=== PATIENT | female | born 1945 | race Caucasian/White ===

== ENCOUNTER 2016-08-11 09:27 | Inpatient (IN) | payer OTHER ==
[~2016-08-11] VITALS: Ht 152.4 cm; Wt 62.4 kg
[2016-08-11] MEDS ORDERED: NITROGLYCERIN 0.4 MG SL PER TAB CHARGE SL STA (09:44)
[2016-08-11] MEDS ORDERED: ASPIRIN 324 MG CHEW PO STA (09:44)
[2016-08-11] MEDS ORDERED: NITROGLYCERIN 0.4 MG SL PER TAB CHARGE SL PRN ×2 (09:45→11:30)
--- NOTE | 2016-08-11 09:53 | EMERGENCY ROOM VISIT NOTE ---
History Report prepared by Oziel: Yuliet Arellano Under the Supervision of: Dr. Balta Swanson M.D. First contact with patient: 09:36 Chief Complaint: CARDIAC ASSESSMENT Stated Complaint: CHEST AND LEFT ARM PAIN Nursing Triage Summary: Triage note: pt reports left sided chest pain "for the past week only in the mornings but today it lasted longer." History of Present Illness The patient is a 71 year old female who presents to the Emergency Room with complaints of intermittent left sided chest pain that began one week ago. She currently rates her discomfort as a 3/10 in severity and she describes her pain as a heaviness. The patient states that over the last week, each morning she has been experiencing left chest pain that radiates into her left arm. She states that her symptoms have been worsening today. The patient states that her symptoms are worsened with exertion. She additionally associates shortness of breath, nausea, and heart palpitations. The patient states that she is typically active and does not normally become short of breath with walking short distances. She denies any fever, chills, loss of consciousness, vomiting , abdominal pain, extremity weakness, rash, or diarrhea. The patient notes that she recently battled a bad cold. She denies any personal history of hypertension, diabetes, heart disease, or high cholesterol. The patient states that she took Ibuprofen for her discomfort without relief. Source of History: patient Onset: one week ago Position: chest (left) Symptom Intensity: 3/10 Quality: other (heaviness) Timing: intermittent Modifying Factors (Worsening): exertion Associated Symptoms: + SOB, + nausea, No LOC, No abdominal pain, No chills, No diarrhea, No fevers, No rash, No vomiting, No weakness Note: Associated Symptoms: Heart palpitations. Review of Systems See HPI for pertinent positives & negatives. A total of 10 systems reviewed and were otherwise negative. Past Medical & Surgical Surgical Problems: (1) H/O dilation and curettage (2) H/O lumpectomy Family History FH: CAD (coronary artery disease) FATHER ( in 70s from [place]) MOTHER ( from [place] in her 70s) FHx: heart disease Hypertension Stroke FATHER MOTHER Social History Smoking Status: Never Smoker Smokeless Tobacco Use: No Alcohol Use: occasionally Marital Status: Housing Status: lives with significant other Occupation Status: retired Current/Historical Medications Scheduled PRN Ibuprofen (Advil), 200-600 MG PO Q4H PRN for Pain Allergies Coded Allergies: No Known Allergies (Unverified , 08/11/16) Physical Exam Vital Signs Date Time Temp Pulse Resp B/P Pulse Ox O2 Delivery O2 Flow Rate FiO2 08/11/16 14:23 36.7 89 18 149/92 95 Room Air 08/11/16 13:47 92 18 124/59 08/11/16 10:30 75 18 124/77 92 Room Air 08/11/16 10:25 84 18 141/85 96 Room Air 08/11/16 10:20 74 18 124/72 94 Room Air 08/11/16 10:15 73 18 114/71 95 Room Air 08/11/16 10:09 60 18 94/56 08/11/16 10:07 61 20 60/43 96 Room Air 08/11/16 10:06 58 08/11/16 10:05 50 08/11/16 10:00 84 18 158/84 08/11/16 09:52 100 08/11/16 09:32 36.5 89 18 190/107 97 Room Air Physical Exam GENERAL: Patient is anxious appearing, mild distress. HEENT: No acute trauma, normocephalic atraumatic, mucous membranes moist, no nasal congestion, no scleral icterus. NECK: No stridor, no adenopathy, no meningismus, trachea is midline. LUNGS: No dyspnea. Clear to auscultation and equal bilaterally. No wheeze, no rhonchi. HEART: Regular rate and rhythm. No murmurs, rubs, gallops appreciated. ABDOMEN: Soft, nontender, bowel sounds positive, no masses appreciated, no peritonitis. BACK: No midline tenderness, no CVA tenderness EXTREMITIES: Normal motion all extremities, no cyanosis, no edema. NEUROLOGIC: Alert and oriented, no acute motor or sensory deficits, no focal weakness, cranial nerves grossly intact. SKIN: No rash, no jaundice, no diaphoresis. Medical Decision & Procedures ER Provider Diagnostic Interpretation: X ray results are stated below per my interpretation and the radiologist's interpretation. CHEST ONE VIEW PORTABLE HISTORY: Atypical Chest Pain COMPARISON: None. FINDINGS: The lungs are clear. Cardiac silhouette is normal in size. No pleural effusions. No pneumothorax. IMPRESSION: No acute process. Electronically signed by: Zay Newell M.D. 08/11/2016 10:25 AM Dictated Date/Time: 08/11/2016 10:24 AM Laboratory Results 08/11/16 09:56 Red Blood Count 4.79, Mean Corpuscular Volume 88.7, Mean Corpuscular Hemoglobin 31.9, Mean Corpuscular Hemoglobin Concent 36.0, Mean Platelet Volume 12.0, Neutrophils (%) (Auto) 50.4, Lymphocytes (%) (Auto) 38.1, Monocytes (%) (Auto) 9.0, Eosinophils (%) (Auto) 1.9, Basophils (%) (Auto) 0.3, Neutrophils # (Auto) 3.52, Lymphocytes # (Auto) 2.66, Monocytes # (Auto) 0.63, Eosinophils # (Auto) 0.13, Basophils # (Auto) 0.02 08/11/16 09:56 Test 08/11/16 09:56 White Blood Count 6.98 K/uL (4.8-10.8) Red Blood Count 4.79 M/uL (4.2-5.4) Hemoglobin 15.3 g/dL (12.0-16.0) Hematocrit 42.5 % (37-47) Mean Corpuscular Volume 88.7 fL (80-100) Mean Corpuscular Hemoglobin 31.9 pg (25-34) Mean Corpuscular Hemoglobin Concent 36.0 g/dl (32-36) Platelet Count 232 K/uL (130-400) Mean Platelet Volume 12.0 fL (7.4-10.4) Neutrophils (%) (Auto) 50.4 % Lymphocytes (%) (Auto) 38.1 % Monocytes (%) (Auto) 9.0 % Eosinophils (%) (Auto) 1.9 % Basophils (%) (Auto) 0.3 % Neutrophils # (Auto) 3.52 K/uL (1.4-6.5) Lymphocytes # (Auto) 2.66 K/uL (1.2-3.4) Monocytes # (Auto) 0.63 K/uL (0.11-0.59) Eosinophils # (Auto) 0.13 K/uL (0-0.5) Basophils # (Auto) 0.02 K/uL (0-0.2) RDW Standard Deviation 39.4 fL (36.4-46.3) RDW Coefficient of Variation 12.4 % (11.5-14.5) Immature Granulocyte % (Auto) 0.3 % Immature Granulocyte # (Auto) 0.02 K/uL (0.00-0.02) Prothrombin Time 10.5 SECONDS (9.0-12.0) Prothromb Time International Ratio 1.0 (0.9-1.1) Activated Partial Thromboplast Time 26.2 SECONDS (21.0-31.0) Partial Thromboplastin Ratio 1.0 Anion Gap 11.0 mmol/L (3-11) Est Creatinine Clear Calc Drug Dose 46.0 ml/min Estimated GFR () 72.6 Estimated GFR (Non- 62.6 BUN/Creatinine Ratio 14.1 (10-20) Calcium Level 9.2 mg/dl (8.5-10.1) Total Creatine Kinase 62 U/L (26-192) Creatine Kinase MB 1.2 ng/ml (0.5-3.6) Creatine Kinase MB Ratio 1.9 (0-3.0) Troponin I 0.068 ng/ml (0-0.045) Laboratory results as reviewed by me. Medications Administered Medications (Trade) Dose Ordered Sig/Ana María Route Start Time Stop Time Status Last Admin Dose Admin Aspirin (Aspirin Chew) 324 mg NOW STAT PO 08/11/16 09:44 08/11/16 09:45 DC 08/11/16 09:53 324 MG Nitroglycerin 0.4 mg 0.4 mg NOW STAT SL 08/11/16 09:44 08/11/16 09:45 DC 08/11/16 09:44 0.4 MG Sodium Chloride (Nss 1000ml) 1,000 ml @ 999 mls/hr Q1H1M STAT IV 08/11/16 10:06 08/11/16 11:06 DC 08/11/16 10:06 999 MLS/HR Heparin Sodium/ Dextrose (Heparin 25,000 Unit/500ml D5W) 25,000 unit STK-MED ONCE .ROUTE 08/11/16 11:02 08/11/16 11:04 DC 08/11/16 11:10 25,000 UNIT Heparin Sodium (Porcine) (Heparin Sq 5000 Unit/0.5ml) 5,000 unit STK-MED ONCE .ROUTE 08/11/16 11:02 08/11/16 11:04 DC 08/11/16 11:09 4,000 UNIT ECG Indication: chest pain Rate (beats per minute): 79 Rhythm: normal sinus Findings: no acute ischemic change, no ectopy ED Course 0937: The patient was evaluated in room B7. A complete history and physical exam was performed. 0944: Ordered Nitroglycerin 0.4 mg SL, Aspirin 324 mg PO. 1006: Ordered Sodium chloride 1000 ml @ 999 mls/hr IV. I reevaluated the patient and she is hypotensive, bradycardic, and mildly nauseous, but sates that she no further chest pain and feels much better. 1046: I discussed the patient's case with Dov Chambers. She will evaluate the patient for further treatment. 1051: Ordered Heparin Sodium/Dextrose 1 ea NA. 1052: I reevaluated the patient and she is doing well. I discussed all the exam findings with her and I discussed the treatment plan. I discussed the contraindications and benefits about starting Heparin with the patient and she denies any contraindications. She agrees to starting Heparin. She will be evaluated for further treatment. 1102: Ordered Heparin Sodium (Porcine) 5000 unit .route, Heparin Sodium/ Dextrose 51625 unit .route. Medical Decision Differential: Cardiac Ischemia (STEMI, NSTEMI, Unstable Angina, etc), Aortic Dissection, Arrhythmia, Pulmonary Embolism, Pneumonia, Pneumothorax, MSK, Infectious, Pericarditis/Myocarditis, Esophageal Rupture, Gastrointestinal, amongst other pathologies entertained. Very pleasant 71 yr old female with exertion increased CP to left arm over last week. Uncomfortable on walk just down el. EKG with lateral depressions though no stemi. She was given single SLNTG with complete resolution of CP though developed significant lightheadedness, nausea and hypotension with bradycardia. Given 1 L NSS bolus stat with vast improvement in symptoms and BP. She has had no further chest pain and vitals have stabilized. She has no evidence of dissection and symptoms are not consistent with PE. Trop is elevated and with her symptoms and initial EKG findings I feel this is NSTEMI. She has complete resolution of CP thus does not need to go emergently to CATH at this time. She was re-evaluated multiple times throughout stay. She understands risks of bleeding with heparin and has no active contraindications thus agrees to starting this. Stable both before and after. Will bring in to medicine service. Consults Time Called: 1045 Consulting Physician: Dov Chambers Returned Call: 1044 I discussed the patient's case with Dov Chambers. She will evaluate the patient for further treatment. Impression Primary Impression: NSTEMI (non-ST elevated myocardial infarction) Critical Care I have personally spent greater than 35 minutes of critical care time in the direct management of this patient. This was a life/limb threatening event. This includes time spent evaluating patient, direct bedside care, chart review, placing orders, interpretation of diagnostic studies, discussion with consultants, patient, and family members, as well as other required patient management activities. This 35 minutes is in excess of all separately billable procedures. Scribe Attestation The scribe's documentation has been prepared under my direction and personally reviewed by me in its entirety. I confirm that the note above accurately reflects all work, treatment, procedures, and medical decision making performed by me. Departure Information Dispostion Being Evaluated By Hospitalist Ulysses Desai M.D. (PCP)
[2016-08-11] MEDS ORDERED: SODIUM CHLORIDE 0.9% 1000ML 1,000 ML IV STA (10:06)
[2016-08-11 10:15] LABS: BASO % 0.3 %; BASO ABS # 0.02 K/uL (0-0.2); COMPLETE YES; EOS % 1.9 %; HEMATOCRIT 42.5 % (37-47); IG% 0.3 %; LYMPH % 38.1 %; LYMPH ABS # 2.66 K/uL (1.2-3.4); MEAN CELL VOLUME 88.7 fL (80-100); MEAN CORPUSCULAR HEMOGLOBIN 31.9 pg (25-34); NEUT % 50.4 %; PLATELET COUNT 232 K/uL (130-400); RED BLOOD COUNT 4.79 M/uL (4.2-5.4); WHITE BLOOD COUNT 6.98 K/uL (4.8-10.8)
--- NOTE | 2016-08-11 10:26 | DIAGNOSTIC IMAGING REPORT ---
CHEST ONE VIEW PORTABLE HISTORY: Atypical Chest Pain COMPARISON: None. FINDINGS: The lungs are clear. Cardiac silhouette is normal in size. No pleural effusions. No pneumothorax. IMPRESSION: No acute process. Electronically signed by: Zay Newell M.D. 08/11/2016 10:25 AM Dictated Date/Time: 08/11/2016 10:24 AM
[2016-08-11] MEDS ORDERED: IBUP-1050 PO (10:27)
[2016-08-11 10:32] LABS: BUN/CREATININE RATIO 14.1 (10-20); CALCIUM 9.2 mg/dl (8.5-10.1); CREATININE 0.92 mg/dl (0.60-1.20); POTASSIUM 4.1 mmol/L (3.5-5.1)
[2016-08-11 10:43] LABS: CKMB/CK RATIO 1.9 (0-3.0)
[2016-08-11] MEDS ORDERED: HEPARIN 25000 UNIT/500 ML D5W ONE (11:02)
[2016-08-11] MEDS ORDERED: HEPARIN SOD 5000 UNIT/0.5 ML CARP ONE (11:02)
[2016-08-11] MEDS ORDERED: ONDANSETRON INJ 2 MG/ML 2 ML VIAL IV PRN (11:15)
[2016-08-11] MEDS ORDERED: ACETAMINOPHEN 325 MG TAB PO PRN (11:15)
[2016-08-11 11:24] LABS: PROTHROMBIN TIME (PATIENT) 10.5 SECONDS (9.0-12.0)
[2016-08-11] MEDS ORDERED: HEPARIN 25,000 UNIT/500ML D5W 500 ML IV PRN (11:45)
--- NOTE | 2016-08-11 12:01 | History and Physical ---
History & Physical Date & Time of Service: Aug 11, 2016 at 11:32 Chief Complaint: Chest Pain Primary Care Physician: Ulysses Stone M.D. History of Present Illness 71 year old female who presents to the ER with chest pain. Patient reports her symptoms began about one week ago. She reports she would wake up in the morning and once getting out of bed she would get left sided chest pressure. She reports the pain as mild to moderate and that it would resolve on it's own after a few hours. She did not have any associated symptoms at that time. This morning she reports the pain as much more severe, rating it #9/10. She also had radiation of the pain into her left arm and had shortness of breath. She denies diaphoresis or nausea. No lightheadedness, dizziness, or syncopal events. She denies orthopnea and leg edema. She reports that aside from the chest pain over the past week, she otherwise has been feeling well. She denies abdominal pain, nausea, or vomiting. No fever or chills. She denies cough and sputum production. No urinary symptoms. In the ER, patient was given SL nitro and is currently pain free. After administration of nitro, patient developed hypotension that improved with IVF bolus. Troponin is found to be 0.068. She was started on heparin infusion. Past Medical/Surgical History Surgical Problems: (1) H/O dilation and curettage Status: Chronic (2) H/O lumpectomy Status: Chronic Family History FH: CAD (coronary artery disease) FATHER ( in 70s from [place]) MOTHER ( from [place] in her 70s) Stroke FATHER MOTHER Social History Smoking Status: Never Smoker Alcohol Use: occasionally Marital Status: Multi-Drug Resistant Organisms History of MDRO: No Allergies Coded Allergies: No Known Allergies (Unverified , 08/11/16) Home Medications Scheduled PRN Ibuprofen (Advil), 200-600 MG PO Q4H PRN for Pain Review of Systems 10 point review of systems was completed with the pertinent positives and negatives noted per the HPI Physical Exam Vital Signs Date Time Temp Pulse Resp B/P Pulse Ox O2 Delivery O2 Flow Rate FiO2 08/11/16 10:30 75 18 124/77 92 Room Air 08/11/16 10:25 84 18 141/85 96 Room Air 08/11/16 10:20 74 18 124/72 94 Room Air 08/11/16 10:15 73 18 114/71 95 Room Air 08/11/16 10:09 60 18 94/56 08/11/16 10:07 61 20 60/43 96 Room Air 08/11/16 10:06 58 08/11/16 10:05 50 08/11/16 10:00 84 18 158/84 08/11/16 09:52 100 08/11/16 09:32 36.5 89 18 190/107 97 Room Air General Appearance: no apparent distress Head: normocephalic Eyes: normal inspection ENT: hearing grossly normal Neck: supple, no JVD Respiratory/Chest: lungs clear, normal breath sounds, no respiratory distress Cardiovascular: regular rate, rhythm, no edema, normal peripheral pulses Abdomen/GI: normal bowel sounds, non tender, soft Extremities/Musculoskelatal: normal inspection, no calf tenderness Neurologic/Psych: no motor/sensory deficits, alert, normal mood/affect, oriented x 3 Skin: normal color, warm/dry Diagnostics Laboratory Results Results Past 24 Hours Test 08/11/16 09:56 Range/Units White Blood Count 6.98 4.8-10.8 K/uL Red Blood Count 4.79 4.2-5.4 M/uL Hemoglobin 15.3 12.0-16.0 g/dL Hematocrit 42.5 37-47 % Mean Corpuscular Volume 88.7 80-100 fL Mean Corpuscular Hemoglobin 31.9 25-34 pg Mean Corpuscular Hemoglobin Concent 36.0 32-36 g/dl Platelet Count 232 130-400 K/uL Mean Platelet Volume 12.0 7.4-10.4 fL Neutrophils (%) (Auto) 50.4 % Lymphocytes (%) (Auto) 38.1 % Monocytes (%) (Auto) 9.0 % Eosinophils (%) (Auto) 1.9 % Basophils (%) (Auto) 0.3 % Neutrophils # (Auto) 3.52 1.4-6.5 K/uL Lymphocytes # (Auto) 2.66 1.2-3.4 K/uL Monocytes # (Auto) 0.63 0.11-0.59 K/uL Eosinophils # (Auto) 0.13 0-0.5 K/uL Basophils # (Auto) 0.02 0-0.2 K/uL RDW Standard Deviation 39.4 36.4-46.3 fL RDW Coefficient of Variation 12.4 11.5-14.5 % Immature Granulocyte % (Auto) 0.3 % Immature Granulocyte # (Auto) 0.02 0.00-0.02 K/uL Prothrombin Time 10.5 9.0-12.0 SECONDS Prothromb Time International Ratio 1.0 0.9-1.1 Activated Partial Thromboplast Time 26.2 21.0-31.0 SECONDS Partial Thromboplastin Ratio 1.0 Sodium Level 141 136-145 mmol/L Potassium Level 4.1 3.5-5.1 mmol/L Chloride Level 108 98-107 mmol/L Carbon Dioxide Level 22 21-32 mmol/L Anion Gap 11.0 3-11 mmol/L Blood Urea Nitrogen 13 7-18 mg/dl Creatinine 0.92 0.60-1.20 mg/dl Est Creatinine Clear Calc Drug Dose 46.0 ml/min Estimated GFR () 72.6 Estimated GFR (Non- 62.6 BUN/Creatinine Ratio 14.1 10-20 Random Glucose 91 70-99 mg/dl Calcium Level 9.2 8.5-10.1 mg/dl Total Creatine Kinase 62 26-192 U/L Creatine Kinase MB 1.2 0.5-3.6 ng/ml Creatine Kinase MB Ratio 1.9 0-3.0 Troponin I 0.068 0-0.045 ng/ml Diagnostic Radiology CXR IMPRESSION: No acute process. Impression Assessment and Plan CHEST PAIN, ACS - admit to tele - patient presenting with chest pressure x 1 week, acutely worse this morning with radiation of pain into the left arm and shortness of breath - chest pain free after one SL nitro - EKG does not show any acute ST changes, initial troponin 0.068 - IV heparin started by ED, will continue - case discussed with Dr. Jackson, cardiology - resting echo - ASA DVT PROPHYLAXIS - on IV heparin DISPO - In my clinical judgment this beneficiary meets acute admission criteria, established by [facility], that includes being hospitalized through two midnights. agree with above h and p. 71f presents with chest pain. Patient says she is getting chest pain in the mornings for last few days but today morning pain was severe 9/10 in severity radiating to left arm and associated with nausea.Pain relived by nitro in er but her BP dropped after nitro and improved with fluids. Currently pain free and hemodynamically stable.Afebrile.No cough p/e Ge not in distress cvs s1 and s2 heard no murmurs Rs cta b/l no added sounds Abd benign [employer] non focal ext no edema a/p Chest pain NSTEMI? mild elevation of troponin ekg unremarkable started on iv heparin aspirin morphine and nitro prn follow serial ce cardiology on board CTA chest negative for PE. VTE Prophylaxis VTE Risk Assessment Done? Y/N: Yes Risk Level: Moderate
--- NOTE | 2016-08-11 14:07 | CARDIOLOGY CONSULTATION ---
DATE OF CONSULTATION: 08/11/2016 REFERRING PHYSICIAN: Dov de jesus. REASON FOR CONSULTATION: Chest pain. HISTORY OF PRESENT ILLNESS: This is a 71-year-old female who is in a very good state of health. She has minimal risk factors for heart disease and is actually on no current outpatient medications. Over the past several weeks she has been experiencing atypical chest discomfort. She states that she will have left-sided chest pain when she gets up in the morning and then after a few hours it goes away on its own. She is able to do her normal activities. It is not associated with shortness of breath or diaphoresis. This morning, she awoke and had severe discomfort, more so than usual and decided to present to the Emergency Department. The patient was given a sublingual nitroglycerin in the Emergency Department and became hypotensive requiring IV fluids. Her first set of cardiac troponins are borderline elevated at 0.068. Her EKG is normal. She is currently pain free and has no complaints. ALLERGIES: No known medical allergies. MEDICATIONS: P.r.n. ibuprofen. PAST MEDICAL HISTORY: She has no history of hypertension, diabetes, hypercholesterolemia, kidney disease or strokes. She had a D\T\C and lumpectomy. No other significant past medical history. SOCIAL HISTORY: She is a lifelong nonsmoker. She lives with her . FAMILY MEDICAL HISTORY: Significant for her parents dying from myocardial infarction in their 70s. REVIEW OF SYSTEMS: A 10-point review of systems is negative except for the history of chief complaint. PHYSICAL EXAMINATION: GENERAL: She is alert and oriented in no acute distress. VITAL SIGNS: Blood pressure is 120/70, pulse is regular at 75. She is afebrile. HEENT: She is normocephalic. Pupils are equal and reactive to light. Extraocular muscles are intact bilaterally. NECK: The neck veins are flat. Carotids have good upstrokes bilaterally without bruits. Thyroid is nonpalpable. RESPIRATORY: Breath sounds equal bilaterally and clear to auscultation. CARDIOVASCULAR: Heart has a regular rhythm. Normal S1, S2. No S3, S4. No cardiac rubs or murmurs. GASTROINTESTINAL: Abdomen is soft, nontender without organomegaly. EXTREMITIES: Free of edema, digit clubbing, or cyanosis. NEUROLOGIC: Grossly intact. SKIN: Warm to touch. LYMPH NODES: Negative to palpation. LABORATORY DATA: As per the history of chief complaint. IMPRESSION: 1. Chest pain. 2. Borderline elevation of cardiac markers. 3. Normal EKG. 4. Minimal risk factors for coronary artery disease. RECOMMENDATIONS: I think the patient should be admitted and have additional cardiac markers drawn. Her initial troponins could be elevated due to her being given sublingual nitroglycerin in the ER with subsequent hypotension. We will see what the next set shows.
[2016-08-11 14:23] VITALS: BP 149/92; PULSE 89; TEMP 36.7; O2SAT 95; Ht 152.4 cm; Wt 62.4 kg
[2016-08-11] MEDS ORDERED: OPTIRAY 320 IV PRN (17:15)
[2016-08-11 19:34] LABS: PARTIAL THROMBOPLASTIN RATIO 2.6
[2016-08-11 19:50] VITALS: BP 165/83; PULSE 90; TEMP 36.7; O2SAT 96
--- NOTE | 2016-08-11 20:49 | DIAGNOSTIC IMAGING REPORT ---
CHEST CTA for PULMONARY ARTERIES CT DOSE: 189.45 mGy.cm HISTORY: Chest pain dyspnea TECHNIQUE: Multiaxial CT images of the chest were performed following the intravenous administration of contrast to evaluate the pulmonary arteries. Maximal intensity projection images were also obtained. COMPARISON STUDY: None. FINDINGS: There is a normal caliber thoracic aorta with no evidence for dissection. There is no evidence for pulmonary embolus. No pleural effusions. No pneumothorax. The liver and spleen are unremarkable. No mediastinal or hilar lymphadenopathy. The central airways are patent. The lungs are clear. Scattered platelike atelectasis. Mild emphysematous change. IMPRESSION: No evidence for pulmonary embolus. Electronically signed by: Ramiro Pack M.D. 08/11/2016 8:48 PM Dictated Date/Time: 08/11/2016 8:45 PM
[2016-08-11] MEDS ORDERED: MoRPHine SULFATE 4 MG/ML 1 ML CARP\\VIAL IV PRN (21:15)
[2016-08-11] MEDS ORDERED: TRAMADOL HCL 50 MG TAB PO PRN (21:15)
[2016-08-12] VITALS (17 sets, daily range): BP systolic 107–161; BP diastolic 66–83; PULSE 74–103; TEMP 36.1–37; O2SAT 93–96
[2016-08-12 07:01] LABS: HEMATOCRIT 38.4 % (37-47); MEAN CELL VOLUME 88.1 fL (80-100); MEAN CORPUSCULAR HEMOGLOBIN 31.7 pg (25-34); MEAN CORPUSCULAR HGB CONC 35.9 g/dl (32-36); MEAN PLATELET VOLUME 11.9 fL (7.4-10.4); PLATELET COUNT 232 K/uL (130-400); RED BLOOD COUNT 4.36 M/uL (4.2-5.4); WHITE BLOOD COUNT 8.38 K/uL (4.8-10.8)
[2016-08-12 07:30] LABS: BUN/CREATININE RATIO 12.2 (10-20); CALCIUM 8.2 mg/dl (8.5-10.1); CREATININE 0.78 mg/dl (0.60-1.20); POTASSIUM 3.8 mmol/L (3.5-5.1)
[2016-08-12 07:33] LABS: CHOLESTEROL/HDL RATIO 3.1
--- NOTE | 2016-08-12 10:03 | Progress Note ---
Internal Med Progress Note Date of Service: Aug 12, 2016. Provider Documentation: SUBJECTIVE: Patient is seen and examined at bedside. Patient currently denies any chest pain , SOB, palpitations, dizziness. Reports having chest pain while getting CT scan yesterday. Offers no other complaints. Planned for cath today. OBJECTIVE: Vital Signs-as noted below Physical Exam: General Appearance:Moderately built and nourished, no apparent distress Head: normocephalic, Atraumatic Eyes: normal inspection, EOMI, PERRLA Neck: supple, Trachea midline Respiratory/Chest: Normal breath sounds, CTA, No accessory muscle use Cardiovascular: S1, S2, No murmur Abdomen/GI:Soft, Non tender, Bowel sounds present Extremities/Musculoskelatal:normal inspection, no edema Neurologic/Psych:AAOX3, grossly no focal neurological deficits Skin: normal color, warm Lab data as noted below. ASSESSMENT & PLAN: CHEST PAIN: R/O ACS Risk Factors: Heart disease in family Continue monitor in tele Patient presenting with chest pressure x 1 week, acutely worse this morning with radiation of pain into the left arm and shortness of breath Chest pain free after one SL nitro >>> Hypotensive requiring IV fluids CTA: Negative for PE Initial EKG: No ST changes Troponin: 0.068, 0.49, 0.59 trending up Continue IV heparin Appreciate cardiology help Planned for cath today ECHO: pending Continue aspirin IRRITABLE BOWEL SYNDROME: well controlled per patient currently not on meds No issues currently DVT PROPHYLAXIS On IV heparin DISPOSITION: Continue monitoring in Tele Vital Signs: Date Time Temp Pulse Resp B/P Pulse Ox O2 Delivery O2 Flow Rate FiO2 08/12/16 08:00 Room Air 08/12/16 07:48 36.8 76 20 127/75 95 Room Air 08/12/16 04:20 37.0 74 16 124/76 96 Room Air 08/12/16 04:00 Room Air 08/12/16 01:43 Room Air 08/12/16 00:17 36.8 75 20 124/82 96 Room Air 08/12/16 00:00 Room Air 08/11/16 20:00 Room Air 08/11/16 19:50 36.7 90 18 165/83 96 Room Air 08/11/16 14:23 36.7 89 18 149/92 95 Room Air 08/11/16 13:47 92 18 124/59 08/11/16 10:30 75 18 124/77 92 Room Air 08/11/16 10:25 84 18 141/85 96 Room Air 08/11/16 10:20 74 18 124/72 94 Room Air Lab Results: Results Past 24 Hours Test 08/11/16 15:45 08/11/16 19:00 08/11/16 21:40 08/12/16 06:35 Range/Units Creatine Kinase MB 2.6 0.5-3.6 ng/ml Creatine Kinase MB Ratio 0-3.0 Troponin I 0.499 0.592 0-0.045 ng/ml Activated Partial Thromboplast Time 66.8 78.3 21.0-31.0 SECONDS Partial Thromboplastin Ratio 2.6 3.0 White Blood Count 8.38 4.8-10.8 K/uL Red Blood Count 4.36 4.2-5.4 M/uL Hemoglobin 13.8 12.0-16.0 g/dL Hematocrit 38.4 37-47 % Mean Corpuscular Volume 88.1 80-100 fL Mean Corpuscular Hemoglobin 31.7 25-34 pg Mean Corpuscular Hemoglobin Concent 35.9 32-36 g/dl RDW Standard Deviation 40.1 36.4-46.3 fL RDW Coefficient of Variation 12.4 11.5-14.5 % Platelet Count 232 130-400 K/uL Mean Platelet Volume 11.9 7.4-10.4 fL Sodium Level 143 136-145 mmol/L Potassium Level 3.8 3.5-5.1 mmol/L Chloride Level 112 98-107 mmol/L Carbon Dioxide Level 21 21-32 mmol/L Anion Gap 10.0 3-11 mmol/L Blood Urea Nitrogen 10 7-18 mg/dl Creatinine 0.78 0.60-1.20 mg/dl Est Creatinine Clear Calc Drug Dose 53.9 ml/min Estimated GFR () 88.6 Estimated GFR (Non- 76.5 BUN/Creatinine Ratio 12.2 10-20 Random Glucose 101 70-99 mg/dl Calcium Level 8.2 8.5-10.1 mg/dl Triglycerides Level 109 0-150 mg/dl Cholesterol Level 217 0-200 mg/dl HDL Cholesterol 70 mg/dl LDL Cholesterol, Calculated 125 mg/dl VLDL Cholesterol, Calculated 22 mg/dl Cholesterol/HDL Ratio 3.1
--- NOTE | 2016-08-12 11:56 | ECHOCARDIOGRAM REPORT ---
*NOTICE TO RECEIVING LIBERTARIAN AGENCY This information is strictly Confidential and protected under [place] law. [place] law prohibits you from making any further disclosure of this information unless further disclosure is expressly permitted by the written consent of the person to whom it pertains or is authorized by law. A general authorization for the release of medical or other information is not sufficient for this purpose. Hospital accepts no responsibility if the information is made available to any other person, INCLUDING THE PATIENT. Interpretation Summary * Name: LOEN JOHNSON Study Date: 08/12/2016 10:24 AM BP: 124/76 mmHg * Patient Location: C.2T\S\S230\S\1 HR: 76 * : 1945 (M/d/yyyy) Gender: Female Height: 60 in * Age: 71 yrs Ethnicity: CA Weight: 135 lb * Ordering Physician: Anum Linda * Performed By: Dahiana Zuniga RDCS * * Reason For Study: Chest pain, NSTEMI * BSA: 1.6 m2 * -- Conclusions -- * The left ventricle is normal in size. * There is mild anterior wall hypokinesis. * Ejection Fraction = 55-60%. * The right ventricular systolic function is normal. * The left atrial size is normal. * Right atrial size is normal. * There is mild mitral regurgitation. Procedure Details * A complete two-dimensional transthoracic echocardiogram was performed (2D, M-mode, Doppler and color flow Doppler). Left Ventricle * The left ventricle is normal in size. * There is normal left ventricular wall thickness. * Ejection Fraction = 55-60%. * There is mild anterior wall hypokinesis. Right Ventricle * The right ventricle is normal size. * The right ventricular systolic function is normal. Atria * The left atrial size is normal. * Right atrial size is normal. * The interatrial septum is intact with no evidence for an atrial septal defect. Mitral Valve * The mitral valve anatomy is normal. * There is mild mitral regurgitation. Tricuspid Valve * The tricuspid valve anatomy is normal. * Significant tricuspid regurgitation is absent. Aortic Valve * The aortic valve is tricuspid. The leaflet thickness if normal. There is no aortic stenosis, and no significant insufficiency. * Aortic stenosis is absent. * There is no significant aortic regurgitation. Pulmonic Valve * The pulmonic valve is not well visualized. Great Vessels * The aortic root and proximal ascending aorta are normal sized. Pericardium/Pleural * There is no pericardial effusion. MMode 2D Measurements and Calculations IVSd 0.89 cm LVIDd 4.2 cm LVIDs 3.0 cm LVPWd 0.75 cm IVS/LVPW 1.2 FS 26.7 % EDV(Teich) 76.4 ml ESV(Teich) 36.2 ml EF(Teich) 52.6 % EDV(cubed) 71.5 ml ESV(cubed) 28.2 ml EF(cubed) 60.6 % LV mass(C)d 102.4 grams LV mass(C)dI 64.8 grams/m\S\2 CO(Teich) 3.0 l/min CI(Teich) 1.9 l/min/m\S\2 SV(Teich) 40.2 ml SI(Teich) 25.4 ml/m\S\2 CO(cubed) 3.3 l/min CI(cubed) 2.1 l/min/m\S\2 SV(cubed) 43.3 ml SI(cubed) 27.4 ml/m\S\2 Ao root diam 2.6 cm Ao root area 5.2 cm\S\2 ACS 1.7 cm LA dimension 3.1 cm asc Aorta Diam 2.6 cm LA/Ao 1.2 LVAd ap4 18.0 cm\S\2 LVLd ap4 6.2 cm EDV(MOD-sp4) 43.4 ml LVAs ap4 11.5 cm\S\2 LVLs ap4 5.6 cm ESV(MOD-sp4) 19.6 ml EF(MOD-sp4) 54.8 % LVAd ap2 11.7 cm\S\2 LVLd ap2 4.7 cm EDV(MOD-sp2) 24.0 ml LVAs ap2 7.4 cm\S\2 LVLs ap2 4.2 cm ESV(MOD-sp2) 10.9 ml EF(MOD-sp2) 54.6 % CO(MOD-sp4) 1.8 l/min CI(MOD-sp4) 1.1 l/min/m\S\2 SV(MOD-sp4) 23.8 ml SI(MOD-sp4) 15.1 ml/m\S\2 CO(MOD-sp2) 0.98 l/min CI(MOD-sp2) 0.62 l/min/m\S\2 SV(MOD-sp2) 13.1 ml SI(MOD-sp2) 8.3 ml/m\S\2 Doppler Measurements and Calculations MV E max georgina 98.5 cm/sec MV A max georgina 126.1 cm/sec MV E/A 0.78 MV dec time 0.21 sec Ao V2 max 124.9 cm/sec Ao max PG 6.2 mmHg Ao max PG (full) 1.9 mmHg LV V1 max PG 4.4 mmHg LV V1 max 104.3 cm/sec MR max georgina 500.7 cm/sec MR max PG 100.3 mmHg MR mean georgina 385.8 cm/sec MR mean PG 67.0 mmHg MR VTI 135.5 cm PA V2 max 104.2 cm/sec PA max PG 4.3 mmHg PA acc slope 811.8 cm/sec\S\2 PA acc time 0.10 sec PI max georgina 179.8 cm/sec PI max PG 12.9 mmHg PI dec slope 298.3 cm/sec\S\2 PI P1/2t 176.6 msec TR max georgina 236.7 cm/sec PA pr(Accel) 34.6 mmHg
[2016-08-12] MEDS ORDERED: NiCARDipine HCL INJ 2.5 MG/ML 10 ML AMP ONE (13:13)
[2016-08-12] MEDS ORDERED: NITROGLYCERIN/D5W 100MCG/ML 20ML SYR ONE (13:16)
[2016-08-12] MEDS ORDERED: MIDAZOLAM HCL 1 MG/ML 2ML VIAL ONE ×2 (13:17→14:14)
[2016-08-12] MEDS ORDERED: FENTANYL CITRATE INJ 50 MCG/1 ML 2 ML VIAL ONE (13:17)
[2016-08-12] MEDS ORDERED: HEPARIN SOD (PORCINE) 1000 UNIT/ML 10 ML VIAL ONE (13:18)
[2016-08-12] MEDS ORDERED: METHYLPREDNISOLONE 125 MG VIAL ONE (13:30)
[2016-08-12] MEDS ORDERED: DiphenhydrAMINE HCL 50 MG/ML VIAL ONE (13:31)
[2016-08-12] MEDS ORDERED: RANITIDINE HCL 25 MG/ML INJ ONE (13:31)
--- NOTE | 2016-08-12 13:55 | Cardiac Catheterization ---
Procedure Note Procedure Date Aug 12, 2016. Pre-Procedure Diagnosis Non STEMI AUC Score 9 Post-Procedure Diagnosis Severe CAD Procedure(s) Performed Coronary Angiography, Left Heart Cath Key Sander Dr. Jackson Party Host(s) None Estimated Blood Loss None Medication(s) Versed, Lidocaine 1% Summary of Findings Subtotal prox. LAD Hemodynamics Rest Ao: 132/92 Final Ao: 130/90 LV: 165/17 Recommendations PCI without planned CABG Specimens None Radiation Exposure (mGy) 157 Contrast (mls) 66 Procedural Complication(s) Patient had coughing during cath and received, solumedrol, benadryl and zantac. Cough resolved. Disposition PCU ACC Data Cardiac Status Clinical evaluation leading to the procedure CAD Presntation: Unstable angina, Non STEMI STEMI or Non-STEMI: Thrombolytics: No Anginal Classification: CCS III Heart Failure: No Cardiogenic Shock w/in 24Hrs: No Cardiac Arrest w/in 24Hrs: No Imaging studies past 6 months: Yes Stress studies past 6 months: No Standard Exercise Stress Test: No Stress Echocardiogram: No Stress Testing w/SPECT MPI: No Cardiac CTA: No Coronary Anatomy Dominant: Right Left Main (% Stenosis): Normal LAD (% Stenosis): Proximal (95) Circumflex (% Stenosis): Normal RCA (% Stenosis): Normal Diagnostic Status: Urgent Closure Device Percutaneous Entry Location: Radial Closure Device: Radial Band Recommendations: PCI without planned CABG
[2016-08-12] MEDS: CLOPIDOGREL BISULFATE 300 MG TAB PO ONE ×2 (14:43→14:49)
[2016-08-12] MEDS ORDERED: CLOPIDOGREL BISULFATE 75 MG TAB ONE ×2 (14:44→14:46)
[2016-08-12] MEDS ORDERED: ONDANSETRON INJ 2 MG/ML 2 ML VIAL IV PRN (15:00)
[2016-08-12] MEDS ORDERED: ACETAMINOPHEN 325 MG TAB PO PRN (15:00)
[2016-08-12] MEDS ORDERED: SODIUM CHLORIDE 0.9% 1000ML 1,000 ML IV SCH ×2 (15:00)
--- NOTE | 2016-08-12 15:06 | Procedure Note ---
Post-Mod Sedation Assessment General Date of Moderate Sedation Aug 12, 2016. Vital Signs: Vital Signs Past 12 Hours Date Time Temp Pulse Resp B/P Pulse Ox O2 Delivery O2 Flow Rate FiO2 08/12/16 14:45 84 14 102/70 95 Room Air 08/12/16 14:35 85 14 148/90 95 Room Air 08/12/16 12:00 Room Air 08/12/16 11:55 36.9 89 18 161/83 95 Room Air 08/12/16 08:00 Room Air 08/12/16 07:48 36.8 76 20 127/75 95 Room Air 08/12/16 04:20 37.0 74 16 124/76 96 Room Air 08/12/16 04:00 Room Air Review - Discharge Criteria Vital Signs Stable: Yes Alert/Oriented/Conversant: Yes Returned to Baseline Mental St: Yes Nausea Absent/Minimal: Yes Pain/Discomfort/Absent/Minimal: Yes Normal/Baseline Respirations: Yes Active Bleeding?: N/A Pt Received D/C Instructions: N/A Prescriptions Given: None Specific Proced. D/C Criteria Distal Pulses Present (Cardiac: Yes Groin site assessed-Card Cath: N/A Voided Prior To Discharge: N/A Discharged Patients Adult Escort/Transportation: Yes
[2016-08-12] MEDS: ASPIRIN 81 MG ECTAB PO SCH (15:40)
[2016-08-12] MEDS ORDERED: NURSING VERBAL MED ORDER ONE ×2 (15:45)
--- NOTE | 2016-08-12 17:25 | CARDIAC CATH REPORT ---
PROCEDURE: 1. Coronary angiography. 2. Left heart catheterization. HISTORY OF PRESENT ILLNESS: This is a 71-year-old female who presented with a non-STEMI. PROCEDURE SUMMARY: The patient was brought to the holding area of the skilled labor. After informed consent was obtained, the patient was taken to the cardiac catheterization lab where access was obtained using retrograde Seldinger technique from the right transfemoral approach. A Barbeau maneuver was performed before proceeding and showed good collateral flow within the hand. Preformed 4-Tamazight diagnostic catheters were utilized for the coronary angiograms. During procedure, the patient developed coughing and was given prophylaxis for dye allergy with Solu-Medrol, ranitidine and Benadryl. The coughing improved after being given these medications. The patient then went on to have coronary intervention on the LAD and then was admitted in stable condition. CORONARY ANGIOGRAPHY: Selective injections of the left coronary artery revealed the left main trunk to be patent. The LAD has a long segment subtotal stenosis in the proximal segment. The left circumflex artery consists principally of several, 3 in total, marginal branches. Left circumflex system is smooth in appearance, widely patent, and within normal limits. Selective injections of the right coronary artery reveal it to be dominant. The right coronary artery is smooth in appearance, widely patent, and within normal limits. The LVEDP was 17. SUMMARY: The patient has severe single vessel coronary artery disease that will require intervention on the left anterior descending artery. RECOMMENDATIONS: The patient will undergo coronary intervention on the LAD.
--- NOTE | 2016-08-12 22:49 | Cardiac Catheterization ---
Procedure Note Procedure Date Aug 12, 2016. Pre-Procedure Diagnosis Non STEMI AUC Score 8 Post-Procedure Diagnosis Severe CAD, Successful PCI Procedure(s) Performed Coronary Angiography, Drug Eluting Stent, IVUS Control And Recovery Combat Rescue Dr. Fox Social Science Analyst(s) Charity Estimated Blood Loss 25 Medication(s) Clopidogrel, Fentanyl, Heparin, Nitroglycerin, Versed Summary of Findings Indication: NSTEMI Access: 6Fr Right Radial Artery Catheters: EBU 3.5 For full details regarding patient's presentation and coronary angiography please see cath report completed by Dr. Jackson. Briefly, patient found to have severe proximal LAD disease and decision made to proceed with PCI. PCI: Antithrombotic therapy: Heparin, Plavix Procedure: BMW wire passed into distal LAD Lesion predilated with 2.5 compliant balloon. IVUS assessment of lesion showed severe stenosis, primarily soft plaque with minimal calcium extending just to ostium of LAD. No significant disease in left main. Lesion stented with 3.0 x 26 Resolute ALYSIA Repeat IVUS showed underexpansion in the mid segment and appropriately placed stent proximally Stent Post-dilated with 3.5 balloon to high atmospheres. Post procedure stent well expanded, minimal residual stenosis and LAY 3 flow without evidence of coronary complications. Arterial Closure: TR Band Summary: 1. Severe single vessel coronary artery disease - 99% long proximal LAD stenosis 2. Successful IVUS guided PCI of proximal LAD with 3.0 x 26 Resolute ALYSIA (Post- dilated to 3.5) Recommendations: Return to telemetry for continued monitoring. Loaded with plavix 600mg in shipyard laborer. Can discontinue heparin Continue dual antiplatelet therapy for at least 1 year Additional secondary CAD prevention meds per Dr. Jackson Hemodynamics Rest Ao: 132/92/110 Final Ao: 162/86/120 LV: 165/17 Recommendations PCI without planned CABG Specimens None Radiation Exposure (mGy) 507 Contrast (mls) 176 total Fluids (cc crystalloids) 120 Drains none Anesthesia moderate Procedural Complication(s) None Patient had coughing during cath and received, solumedrol, benadryl and zantac. Cough resolved. Disposition PCU ACC Data Cardiac Status Clinical evaluation leading to the procedure CAD Presntation: Non STEMI Anginal Classification: CCS IV Heart Failure: No, NYHA Class: CCS I Cardiogenic Shock w/in 24Hrs: No Cardiac Arrest w/in 24Hrs: No Imaging studies past 6 months: Yes Stress studies past 6 months: No Standard Exercise Stress Test: No Stress Echocardiogram: No Stress Testing w/SPECT MPI: No Cardiac CTA: No Coronary Anatomy LAD (% Stenosis): Proximal Diagnostic Physician's Name: Odell Fox MD Status: Urgent Closure Device Percutaneous Entry Location: Radial Closure Device: Radial Band Recommendations: PCI without planned CABG PCI Indication: PCI for high risk Non-STEMI Lesion Segment Name: Proximal LAD Culprit Artery: Yes Stenosis Prior to Rx (%): 99 Chronic Total Occlusion: No IVUS: Yes FFR: No Pre-Procedure LAY Flow: 3 Previously Treated Lesion: No Lesion Complexity: Non-High/Non-C Lesion Length (mm): 22 Thrombus Present: Yes Bifurcation Lesion: No Guidewire Across Lesion: Yes Guidewire: Stenosis Post-Procedure (%): 0 Post-Procedure LAY Flow: 3 Device(s) Deployed: Yes Intraprocedure Events Significant Dissection: No Perforation: No
[2016-08-13 00:01] VITALS: BP 123/73; TEMP 36.9; O2SAT 93
[2016-08-13 04:00] VITALS: BP 136/77; PULSE 81; TEMP 37; O2SAT 95; O2SAT 97
[2016-08-13 05:45] LABS: BASO % 0.1 %; BASO ABS # 0.01 K/uL (0-0.2); COMPLETE YES; HEMATOCRIT 37.5 % (37-47); IG% 0.3 %; LYMPH % 18.4 %; LYMPH ABS # 1.78 K/uL (1.2-3.4); MEAN CELL VOLUME 87.4 fL (80-100); MEAN CORPUSCULAR HEMOGLOBIN 31.2 pg (25-34); MEAN CORPUSCULAR HGB CONC 35.7 g/dl (32-36); MEAN PLATELET VOLUME 11.9 fL (7.4-10.4); MONO % 8.6 %; NEUT % 72.6 %; PLATELET COUNT 247 K/uL (130-400); RED BLOOD COUNT 4.29 M/uL (4.2-5.4); WHITE BLOOD COUNT 9.68 K/uL (4.8-10.8)
[2016-08-13 06:16] LABS: BUN/CREATININE RATIO 11.9 (10-20); CALCIUM 8.6 mg/dl (8.5-10.1); CREATININE 0.77 mg/dl (0.60-1.20)
[2016-08-13 07:54] VITALS: BP 125/78; PULSE 85; TEMP 36.7; O2SAT 95
--- NOTE | 2016-08-13 07:59 | Cardiology Follow-Up ---
Subjective General Date of Service: Aug 13, 2016. Chief Complaint: follow up chest pain, NSTEMI Pt evaluation today including: conversation w/ patient, conversation w/ family , physical exam History of Present Illness The patient is a 71 year old female seen in follow up. Patient reports that she feels well. Her daughter is accompanying her at the bedside. She is tolerating her breakfast well and has no complaints. She has been up and walked to the bathroom without any chest discomfort. Her right radial heart catheterization site is free of pain. Telemetry reveals stable sinus rhythm with no significant tachycardia or bradycardia. Allergies Coded Allergies: No Known Allergies (Unverified , 08/11/16) Social History Smoking Status: Never Smoker Hx Tobacco Use In Past Year?: No Hx Alcohol Use - Type And Amou: Yes (2-3 drinks per week. ) Hx Substance Use - Type And Am: No Problem List Medical Problems: (1) NSTEMI (non-ST elevated myocardial infarction) Status: Acute Physical Exam Vital Signs Last Vital Signs Documentation Date Time Temp Pulse Resp B/P Pulse Ox O2 Delivery O2 Flow Rate FiO2 08/13/16 04:00 37.0 81 18 136/77 97 Room Air Physical Exam Constitutional: Level of Distress: NAD Head: normocephalic Neck: supple Lungs: Auscultation: no wheezing, no rales/crackles, no rhonchi Cardiovascular: Heart Auscultation: RRR, no murmurs, no rubs, no gallops Abdomen: Inspection & Palpation: soft, non-distended Extremities: no cyanosis, no edema, pertinent finding (right radial artery catheterization site is dry and intact with no ecchymosis.) Neurologic: Gait & Station: pertinent finding (no focal neurologic deficits) Assessment and Plan Assessment and Plan Impression: 71-year-old female 1. Anterior wall non-ST segment elevation myocardial infarction -Patient underwent diagnostic cardiac catheterization and subsequent intervention: 1. Severe single vessel coronary artery disease - 99% long proximal LAD stenosis 2. Successful IVUS guided PCI of proximal LAD with 3.0 x 26 Resolute ALYSIA ( Post-dilated to 3.5) -EKG performed this morning to reveals deep T-wave inversions in leads V1 to V5, which are somewhat less prominent than the tracing performed before her cardiac catheterization yesterday, and are consistent with evolution of the anterior myocardial infarction. Her echocardiogram revealed normal LVEF and no wall motion abnormalities pre- cardiac catheterization 2. Dyslipidemia Recommendations: Plan for discharge on dual antiplatelet therapy, patient is to be on lifelong aspirin 81 mg by mouth daily, or gross to be continued without interruption for one year at which time ongoing therapy will be reassessed. Start metoprolol succinate 25 mg by mouth daily. Start atorvastatin 40 mg by mouth daily, dyslipidemia is a new diagnosis for her. High intensity statin therapy is recommended given her CAD. At the time of follow-up, consideration should be made regarding starting ACEI or ARB therapy. At present there is no definite indication for ACEI / ARB as her blood pressure was well-controlled, she is not diabetic, has normal LVEF, and no clinical congestive heart failure. She did however have CAD involving the LAD. Depending upon her blood pressure status in follow-up, initiation of one of these medications could be considered. The patient does not have a previous relationship with cardiology. I'm going to request cardiology follow-up in one to [address] Jackson or PA. Hollie Rivera, DO Laboratory Results Last 24 Hours Test 08/12/16 13:39 08/13/16 05:25 Kaolin Activated Coagulation Time 157 SECONDS White Blood Count 9.68 K/uL Red Blood Count 4.29 M/uL Hemoglobin 13.4 g/dL Hematocrit 37.5 % Mean Corpuscular Volume 87.4 fL Mean Corpuscular Hemoglobin 31.2 pg Mean Corpuscular Hemoglobin Concent 35.7 g/dl Platelet Count 247 K/uL Mean Platelet Volume 11.9 fL Neutrophils (%) (Auto) 72.6 % Lymphocytes (%) (Auto) 18.4 % Monocytes (%) (Auto) 8.6 % Eosinophils (%) (Auto) 0.0 % Basophils (%) (Auto) 0.1 % Neutrophils # (Auto) 7.03 K/uL Lymphocytes # (Auto) 1.78 K/uL Monocytes # (Auto) 0.83 K/uL Eosinophils # (Auto) 0.00 K/uL Basophils # (Auto) 0.01 K/uL RDW Standard Deviation 39.6 fL RDW Coefficient of Variation 12.4 % Immature Granulocyte % (Auto) 0.3 % Immature Granulocyte # (Auto) 0.03 K/uL Activated Partial Thromboplast Time 24.7 SECONDS Partial Thromboplastin Ratio 1.0 Sodium Level 143 mmol/L Potassium Level 4.0 mmol/L Chloride Level 110 mmol/L Carbon Dioxide Level 22 mmol/L Anion Gap 11.0 mmol/L Blood Urea Nitrogen 9 mg/dl Creatinine 0.77 mg/dl Est Creatinine Clear Calc Drug Dose 54.6 ml/min Estimated GFR () 90.0 Estimated GFR (Non- 77.7 BUN/Creatinine Ratio 11.9 Random Glucose 110 mg/dl Calcium Level 8.6 mg/dl
[2016-08-13] MEDS: ASPIRIN 81 MG ECTAB PO SCH (08:08)
--- NOTE | 2016-08-13 08:52 | Progress Note ---
Internal Med Progress Note Date of Service: Aug 13, 2016. Provider Documentation: SUBJECTIVE: Patient is seen and examined at bedside. S/P cath yesterday. Feels well. Denies any chest pain, SOB, palpitations, dizziness. Offers no other complaints. OBJECTIVE: Vital Signs-as noted below Physical Exam: General Appearance:Moderately built and nourished, no apparent distress Head: normocephalic, Atraumatic Eyes: normal inspection, EOMI, PERRLA Neck: supple, Trachea midline Respiratory/Chest: Normal breath sounds, CTA, No accessory muscle use Cardiovascular: S1, S2, No murmur Abdomen/GI:Soft, Non tender, Bowel sounds present Extremities/Musculoskelatal:normal inspection, no edema Neurologic/Psych:AAOX3, grossly no focal neurological deficits Skin: normal color, warm Lab data as noted below. ASSESSMENT & PLAN: NSTEMI: S/P PCI (ALYSIA) to LAD Risk Factors: Heart disease in family Patient presenting with chest pressure x 1 week, acutely worse this morning with radiation of pain into the left arm and shortness of breath Chest pain free after one SL nitro >>> Hypotensive requiring IV fluids CTA: Negative for PE Troponin: 0.068, 0.49, 0.59 trending up S/P IV heparin Appreciate cardiology help ECHO and Cath results: As below Continue aspirin, Plavix, metoprolol succinate 25 mg, atorvastatin No indication for ACEI or ARB therapy currently ( As BP well controlled, No diabetes, Normal LV function, No CHF): To assess need as outpatient IRRITABLE BOWEL SYNDROME: well controlled per patient currently not on meds No issues currently DVT PROPHYLAXIS On IV heparin DISPOSITION: Plan to discharge home today Follow up with PCP and Cardiology PROCEDURES: Cardiac Cath: Summary: 1. Severe single vessel coronary artery disease - 99% long proximal LAD stenosis 2. Successful IVUS guided PCI of proximal LAD with 3.0 x 26 Resolute ALYSIA (Post- dilated to 3.5) ECHO: * -- Conclusions -- * The left ventricle is normal in size. * There is mild anterior wall hypokinesis. * Ejection Fraction = 55-60%. * The right ventricular systolic function is normal. * The left atrial size is normal. * Right atrial size is normal. * There is mild mitral regurgitation. CTA: No evidence for pulmonary embolus. CXR: No acute process. Vital Signs: Date Time Temp Pulse Resp B/P Pulse Ox O2 Delivery O2 Flow Rate FiO2 08/13/16 08:00 Room Air 08/13/16 07:54 36.7 85 16 125/78 95 08/13/16 04:00 37.0 81 18 136/77 97 Room Air 08/13/16 04:00 95 Room Air 08/13/16 00:01 36.9 17 123/73 93 Room Air 08/12/16 23:59 95 Room Air 08/12/16 21:00 93 14 124/76 95 Room Air 08/12/16 20:00 95 Room Air 08/12/16 19:46 36.5 103 18 122/79 95 Room Air 08/12/16 19:00 36.8 100 15 121/75 94 Room Air 08/12/16 17:59 100 16 107/67 93 Room Air 08/12/16 17:00 98 16 122/76 08/12/16 16:30 36.1 94 119/71 95 08/12/16 16:00 Room Air 08/12/16 16:00 90 15 114/66 94 Room Air 08/12/16 15:45 82 15 127/74 94 08/12/16 15:30 83 125/73 95 08/12/16 15:15 85 16 124/74 95 Room Air 08/12/16 14:45 84 14 102/70 95 Room Air 08/12/16 14:35 85 14 148/90 95 Room Air 08/12/16 12:00 Room Air 08/12/16 11:55 36.9 89 18 161/83 95 Room Air Lab Results: Results Past 24 Hours Test 08/12/16 13:39 08/13/16 05:25 Range/Units Kaolin Activated Coagulation Time 157 94-140 SECONDS White Blood Count 9.68 4.8-10.8 K/uL Red Blood Count 4.29 4.2-5.4 M/uL Hemoglobin 13.4 12.0-16.0 g/dL Hematocrit 37.5 37-47 % Mean Corpuscular Volume 87.4 80-100 fL Mean Corpuscular Hemoglobin 31.2 25-34 pg Mean Corpuscular Hemoglobin Concent 35.7 32-36 g/dl Platelet Count 247 130-400 K/uL Mean Platelet Volume 11.9 7.4-10.4 fL Neutrophils (%) (Auto) 72.6 % Lymphocytes (%) (Auto) 18.4 % Monocytes (%) (Auto) 8.6 % Eosinophils (%) (Auto) 0.0 % Basophils (%) (Auto) 0.1 % Neutrophils # (Auto) 7.03 1.4-6.5 K/uL Lymphocytes # (Auto) 1.78 1.2-3.4 K/uL Monocytes # (Auto) 0.83 0.11-0.59 K/uL Eosinophils # (Auto) 0.00 0-0.5 K/uL Basophils # (Auto) 0.01 0-0.2 K/uL RDW Standard Deviation 39.6 36.4-46.3 fL RDW Coefficient of Variation 12.4 11.5-14.5 % Immature Granulocyte % (Auto) 0.3 % Immature Granulocyte # (Auto) 0.03 0.00-0.02 K/uL Activated Partial Thromboplast Time 24.7 21.0-31.0 SECONDS Partial Thromboplastin Ratio 1.0 Sodium Level 143 136-145 mmol/L Potassium Level 4.0 3.5-5.1 mmol/L Chloride Level 110 98-107 mmol/L Carbon Dioxide Level 22 21-32 mmol/L Anion Gap 11.0 3-11 mmol/L Blood Urea Nitrogen 9 7-18 mg/dl Creatinine 0.77 0.60-1.20 mg/dl Est Creatinine Clear Calc Drug Dose 54.6 ml/min Estimated GFR () 90.0 Estimated GFR (Non- 77.7 BUN/Creatinine Ratio 11.9 10-20 Random Glucose 110 70-99 mg/dl Calcium Level 8.6 8.5-10.1 mg/dl
[2016-08-13] MEDS ORDERED: ATORVASTATIN 40 MG TAB PO SCH (09:00)
[2016-08-13] MEDS ORDERED: CLOPIDOGREL BISULFATE 75 MG TAB PO SCH (09:00)
[2016-08-13] MEDS ORDERED: METOPROLOL SUCC 25MG EXT REL TAB PO SCH (09:00)
--- NOTE | 2016-08-13 09:00 | Discharge Instructions ---
Discharge Instructions Admission Reason for Admission: Nstemi Discharge Discharge Diagnosis / Problem: NSTEMI: S/P PCI (ALYSIA) to LAD Discharge Goals Goal(s): Decrease discomfort, Improve function Activity Recommendations Activity Limitations: per Instructions/Follow-up section Exercise/Sports Limitations: gradually increase as tolerated . Instructions / Follow-Up Instructions / Follow-Up Follow up with in 1 Week (Appointment not available: Call office on Monday for appointment) Follow up with on September 22 2016 at 1:05PM Take medications as prescribed Seek Immediate medical attention if your symptoms reoccur or worsen. Home Care: * Take your medications exactly as directed. Don't skip doses. * Remember that recovery after a heart attack takes time. Plan to rest for at lease 4-8 weeks while you recover. Then return to normal activity when your doctor says it's okay. * Ask your doctor about joining a heart rehabilitation program. * Tell your doctor if you are feeling depressed. Feelings of sadness are common after a heart attack, but it is important that you speak to someone if you are feeling overwhelmed by these feelings. * If you are having chest pain, call 911 for an ambulance. Do NOT drive yourself to the hospital. * Ask your family members to learn CPR. * Learn to take your own blood pressure and pulse. Keep a record of your results. Ask your doctor when you should seek emergency medical attention. He or she will tell you which blood pressure reading is dangerous. Lifestyle Changes: * Maintain a healthy weight. Get help to lose any extra pounds. * Cut back on salt. * Limit canned, dried, packaged, and fast foods. * Don't add salt to your food. * Season foods with herbs instead of salt when you cook. * Break the smoking habit. Enroll in a stop-smoking program to improve your chances of success. * Limit fatty foods. * Check your lipid levels regularly. (Your doctor can show you how to do this.) * Build up your activity according to your doctor's recommendation. * Ask your doctor when it's okay to resume sexual activity. * Tell your doctor about any erectile dysfunction (ED) medication you are taking. Some ED medications are not safe if you take certain heart medications. * Try to manage stress. Follow Up: It is important for you to keep your follow up appointments with your medical provider. Current Hospital Diet Patient's current hospital diet: AHA Diet (Heart Healthy) Discharge Diet Recommended Diet: AHA Diet (Heart Healthy) Procedures Procedures Performed: Cardiac Cathterization Pending Studies Studies pending at discharge: no Laboratory Results Lipid Panel Test 08/12/16 06:35 Range/Units Triglycerides Level 109 0-150 mg/dl Cholesterol Level 217 H 0-200 mg/dl HDL Cholesterol 70 mg/dl Cholesterol/HDL Ratio 3.1 LDL Cholesterol, Calculated 125 mg/dl Medical Emergencies . Who to Call and When: Medical Emergencies: If at any time you feel your situation is an emergency, please call 911 immediately. Call 911 immediately or go to your nearest Emergency Room if you experience any of the following: Warning Signs and Symptoms of a Heart Attack * Chest pain that is not relieved by medication * Shortness of breath . Non-Emergent Contact Non-Emergency issues call your: Primary Care Provider, Ditch Cleaner Call Non-Emergent contact if: you have a fever, your pain is not controlled, your pain is worsening, your pain is unusual for you, you have any medication questions . . "Provider Documentation" section prepared by Chris Stewart. AMI Core Measures Reason no ASA as I/P: Treatment provided - N/A Reason no ASA at D/C: Treatment provided - N/A Reason no statin as I/P: Treatment provided - N/A Reason no statin at D/C: Treatment provided - N/A VTE Core Measure Inpt VTE Proph given/why not?: Unfractionated heparin SQ
[2016-08-13] MEDS ORDERED: TPRSR25 PO (09:13)
[2016-08-13] MEDS ORDERED: NTRSLP4 SL (09:13)
[2016-08-13] MEDS ORDERED: ASPEC81 PO (09:13)
[2016-08-13] MEDS ORDERED: PLV75 PO (09:13)
[2016-08-13] MEDS ORDERED: LPT40 PO (09:13)
--- NOTE | 2016-08-13 09:14 | Discharge Summary ---
Discharge Summary Admission Date: Aug 11, 2016 at 11:17 Discharge Date: Aug 13, 2016 Discharge Disposition: Home Principal Diagnosis: NSTEMI: S/P PCI (ALYSIA) to LAD Procedures: PCI (ALYSIA) to LAD Consultations: Cardiology Pending Studies/Follow-Up: Follow up with in 1 Week (Appointment not available: Call office on Monday for appointment) Follow up with on September 22 2016 at 1:05PM Medication Reconciliation New Medications: Aspirin (Aspirin EC Low Dose) 81 Mg Ectab 81 MG PO QAM for 30 Days, #30 Atorvastatin (Atorvastatin Calcium) 40 Mg Tab 40 MG PO QAM for 30 Days, #30 TAB 1 Refill Clopidogrel Bisulfate (Clopidogrel) 75 Mg Tab 75 MG PO QAM for 30 Days, #30 TAB 1 Refill Metoprolol Succinate (Metoprolol Succinate ER) 25 Mg Tabcr 25 MG PO QAM for 30 Days, #30 1 Refill Nitroglycerin (Nitrostat) 0.4 Mg/1 Tab Subl 0.4 MG SL PRN PRN for Chest Pain for 30 Days, #60 Discontinued Medications: Ibuprofen (Advil) 200 Mg Tab 200-600 MG PO Q4H PRN for Pain, TAB Admission Information HPI (per Admitting provider): 71 year old female who presents to the ER with chest pain. Patient reports her symptoms began about one week ago. She reports she would wake up in the morning and once getting out of bed she would get left sided chest pressure. She reports the pain as mild to moderate and that it would resolve on it's own after a few hours. She did not have any associated symptoms at that time. This morning she reports the pain as much more severe, rating it #9/10. She also had radiation of the pain into her left arm and had shortness of breath. She denies diaphoresis or nausea. No lightheadedness, dizziness, or syncopal events. She denies orthopnea and leg edema. She reports that aside from the chest pain over the past week, she otherwise has been feeling well. She denies abdominal pain, nausea, or vomiting. No fever or chills. She denies cough and sputum production. No urinary symptoms. In the ER, patient was given SL nitro and is currently pain free. After administration of nitro, patient developed hypotension that improved with IVF bolus. Troponin is found to be 0.068. She was started on heparin infusion. Physical Exam (per Admitting): General Appearance: no apparent distress Head: normocephalic Eyes: normal inspection ENT: hearing grossly normal Neck: supple, no JVD Respiratory/Chest: lungs clear, normal breath sounds, no respiratory distress Cardiovascular: regular rate, rhythm, no edema, normal peripheral pulses Abdomen/GI: normal bowel sounds, non tender, soft Extremities/Musculoskelatal: normal inspection, no calf tenderness Neurologic/Psych: no motor/sensory deficits, alert, normal mood/affect, oriented x 3 Skin: normal color, warm/dry Hospital Course NSTEMI: S/P PCI (ALYSIA) to LAD Risk Factors: Heart disease in family Patient presenting with chest pressure x 1 week, acutely worse this morning with radiation of pain into the left arm and shortness of breath Chest pain free after one SL nitro >>> Hypotensive requiring IV fluids CTA: Negative for PE Troponin: 0.068, 0.49, 0.59 trending up S/P IV heparin Appreciate cardiology help ECHO and Cath results: As below Continue aspirin, Plavix, metoprolol succinate 25 mg, atorvastatin No indication for ACEI or ARB therapy currently ( As BP well controlled, No diabetes, Normal LV function, No CHF): To assess need as outpatient IRRITABLE BOWEL SYNDROME: well controlled per patient currently not on meds No issues currently DVT PROPHYLAXIS On IV heparin DISPOSITION: Plan to discharge home today Follow up with PCP and Cardiology PROCEDURES: Cardiac Cath: Summary: 1. Severe single vessel coronary artery disease - 99% long proximal LAD stenosis 2. Successful IVUS guided PCI of proximal LAD with 3.0 x 26 Resolute ALYSIA (Post- dilated to 3.5) ECHO: * -- Conclusions -- * The left ventricle is normal in size. * There is mild anterior wall hypokinesis. * Ejection Fraction = 55-60%. * The right ventricular systolic function is normal. * The left atrial size is normal. * Right atrial size is normal. * There is mild mitral regurgitation. CTA: No evidence for pulmonary embolus. CXR: No acute process. Total time spent on discharge = 35 Minutes This includes examination of the patient, discharge planning, medication reconciliation, and communication with other providers. Discharge Instructions Discharge Instructions Admission Reason for Admission: Nstemi Discharge Discharge Diagnosis / Problem: NSTEMI: S/P PCI (ALYSIA) to LAD Discharge Goals Goal(s): Decrease discomfort, Improve function Activity Recommendations Activity Limitations: per Instructions/Follow-up section Exercise/Sports Limitations: gradually increase as tolerated . Instructions / Follow-Up Instructions / Follow-Up Follow up with in 1 Week (Appointment not available: Call office on Monday for appointment) Follow up with on September 22 2016 at 1:05PM Take medications as prescribed Seek Immediate medical attention if your symptoms reoccur or worsen. Home Care: * Take your medications exactly as directed. Don't skip doses. * Remember that recovery after a heart attack takes time. Plan to rest for at lease 4-8 weeks while you recover. Then return to normal activity when your doctor says it's okay. * Ask your doctor about joining a heart rehabilitation program. * Tell your doctor if you are feeling depressed. Feelings of sadness are common after a heart attack, but it is important that you speak to someone if you are feeling overwhelmed by these feelings. * If you are having chest pain, call 911 for an ambulance. Do NOT drive yourself to the hospital. * Ask your family members to learn CPR. * Learn to take your own blood pressure and pulse. Keep a record of your results. Ask your doctor when you should seek emergency medical attention. He or she will tell you which blood pressure reading is dangerous. Lifestyle Changes: * Maintain a healthy weight. Get help to lose any extra pounds. * Cut back on salt. * Limit canned, dried, packaged, and fast foods. * Don't add salt to your food. * Season foods with herbs instead of salt when you cook. * Break the smoking habit. Enroll in a stop-smoking program to improve your chances of success. * Limit fatty foods. * Check your lipid levels regularly. (Your doctor can show you how to do this.) * Build up your activity according to your doctor's recommendation. * Ask your doctor when it's okay to resume sexual activity. * Tell your doctor about any erectile dysfunction (ED) medication you are taking. Some ED medications are not safe if you take certain heart medications. * Try to manage stress. Follow Up: It is important for you to keep your follow up appointments with your medical provider. Current Hospital Diet Patient's current hospital diet: AHA Diet (Heart Healthy) Discharge Diet Recommended Diet: AHA Diet (Heart Healthy) Procedures Procedures Performed: Cardiac Cathterization Pending Studies Studies pending at discharge: no Laboratory Results Lipid Panel Test 08/12/16 06:35 Range/Units Triglycerides Level 109 0-150 mg/dl Cholesterol Level 217 H 0-200 mg/dl HDL Cholesterol 70 mg/dl Cholesterol/HDL Ratio 3.1 LDL Cholesterol, Calculated 125 mg/dl Medical Emergencies . Who to Call and When: Medical Emergencies: If at any time you feel your situation is an emergency, please call 911 immediately. Call 911 immediately or go to your nearest Emergency Room if you experience any of the following: Warning Signs and Symptoms of a Heart Attack * Chest pain that is not relieved by medication * Shortness of breath . Non-Emergent Contact Non-Emergency issues call your: Primary Care Provider, Rehab Services Aide Call Non-Emergent contact if: you have a fever, your pain is not controlled, your pain is worsening, your pain is unusual for you, you have any medication questions . . "Provider Documentation" section prepared by Chris Stewart. AMI Core Measures Reason no ASA as I/P: Treatment provided - N/A Reason no ASA at D/C: Treatment provided - N/A Reason no statin as I/P: Treatment provided - N/A Reason no statin at D/C: Treatment provided - N/A VTE Core Measure Inpt VTE Proph given/why not?: Unfractionated heparin SQ
[2016-08-13 09:30] VITALS: BP 125/78; PULSE 85; TEMP 36.7; O2SAT 95
== END 2016-08-13 10:05 | disposition home or self-care (01) | DRG 247 ==
LOC: ENRESERVTM → ENRESERVDT → C.EDB 09:29 → C.2T 11:17
PROVIDERS: ADMIT Internal Medicine; ATTEND Internal Medicine
PROC: B2100ZZ Fluoroscopy of Single Coronary Artery using High Osmolar Contrast (ICD-10-PCS; 2016-08-12)
PROC: 4A023N7 Measurement of Cardiac Sampling and Pressure, Left Heart, Percutaneous Approach (ICD-10-PCS; 2016-08-12)
PROC: B2111ZZ Fluoroscopy of Multiple Coronary Arteries using Low Osmolar Contrast (ICD-10-PCS; principal; 2016-08-12 14:12)
PROC: 027034Z Dilation of Coronary Artery, One Artery with Drug-eluting Intraluminal Device, Percutaneous Approach (ICD-10-PCS; principal; 2016-08-12 14:12)
DX: I21.4 Non-ST elevation (NSTEMI) myocardial infarction (principal); I25.10 Atherosclerotic heart disease of native coronary artery without angina pectoris; E78.5 Hyperlipidemia, unspecified; Z82.49 Family history of ischemic heart disease and other diseases of the circulatory system; Z82.3 Family history of stroke

== ENCOUNTER 2018-12-17 21:27 | Inpatient (IN) ==
--- OUTSIDE RECORDS SUMMARY | 2018-12-17 21:30 | External Medical Summary | Continuity of Care Document ---
:1945 Author Name Adolfo Doll, Provider Address Unavailable Unavailable , Care Team Providers Name Role Phone Odell Fox [email or web address] PCP, UNKNOWN Unavailable Unavailable Problems Active medical history not documented Allergies and Adverse Reactions Allergy history not documented Medications Medications not documented Procedures Procedures not documented Immunizations Immunizations not documented Plan of Treatment Planned Observations Planned Goals not documented Results No Known Results Results not documented
[2018-12-17] MEDS ORDERED: SODIUM CHLORIDE 0.9% 1000ML 1,000 ML IV SCH (21:45)
[2018-12-17 22:00] LABS: Basophils # (auto) 0.02 K/uL (0-0.2); Basophils % (auto) 0.2 %; Eosinophils # (auto) 0.19 K/uL (0-0.5); Eosinophils % (auto) 1.8 %; Hematocrit (blood only) 38.9 % (37-47); Hemoglobin 13.3 g/dL (12.0-16.0); Immature Granulocytes # (auto) 0.02 K/uL (0.00-0.02); Immature Granulocytes % (auto) 0.2 %; Lymphocytes # (auto) 3.46 K/uL (1.2-3.4); Lymphocytes % (auto) 33.5 %; Mean Corpuscular Hgb Conc 34.2 g/dL (32-36); Mean Corpuscular Volume 90.9 fL (80-100); Monocytes # (auto) 1.28 K/uL (0.11-0.59); Monocytes % (auto) 12.4 %; Neutrophils # (auto) 5.36 K/uL (1.4-6.5); Neutrophils % (auto) 51.9 %; Platelet Count 273 K/uL (130-400); RDW Coefficient of Variation 12.6 % (11.5-14.5); RDW Standard Deviation 41.7 fL (36.4-46.3); Red Blood Count 4.28 M/uL (4.2-5.4); White Blood Count 10.33 K/uL (4.8-10.8)
[2018-12-17 22:12] LABS: iSTAT Creatinine 0.7 mg/dl (0.6-1.3); iSTAT Hemoglobin 12.9 g/dl (12.0-16.0); iSTAT Ionized Calcium 1.15 mmol/l (1.12-1.32)
[2018-12-17 22:15] LABS: Albumin Level 3.9 gm/dl (3.4-5.0); BUN Creatinine Ratio 22.4 (10-20); Calcium 9.5 mg/dl (8.5-10.1); Est GFR (African American) 91.7; Est GFR (Non-African American) 79.1; Potassium 4.1 mmol/L (3.5-5.1)
[2018-12-17 22:19] LABS: Albumin Globulin Ratio 1.1 (0.9-2); Bilirubin,Total 0.3 mg/dl (0.2-1); Globulin 3.5 gm/dl (2.5-4.0); Total Protein 7.4 gm/dl (6.4-8.2)
[2018-12-17 22:23] LABS: Appearance Urine Clear (Clear); Bacteria Urine Automated Negative (Negative); Bilirubin Urine Negative (Negative); Blood Urine 2+ (Negative); Cast Urine Automated 0 /lpf (0-5); Color Urine Yellow; Epithelial Cell Urine Auto 0-5 /lpf (0-5); Glucose Urine UA Negative (Negative); Ketones Urine Negative (Negative); Leukocyte Esterase Urine Trace (Negative); Nitrite Urine Negative (Negative); Protein Urine Negative (Negative); Specific Gravity Urine 1.017 (1.000-1.030); Urobilinogen Urine Negative (Negative); pH Urine 7.5 (4.5-7.5)
[2018-12-17 22:26] LABS: Partial Thromboplastin Time 26.8 Seconds (21.0-31.0); Prothrombin Time 10.5 Seconds (9.0-12.0)
[2018-12-17] MEDS ORDERED: IOVERSOL 100ml IV PRN (22:45)
--- NOTE | 2018-12-17 22:59 | CT Scan Report ---
CT abd pelvis IV con only CT DOSE: 235.72 mGy.cm HISTORY: Pain GIB TECHNIQUE: Multiaxial CT images of the abdomen and pelvis were performed following the use of intrave nous contrast. A dose lowering technique was utilized adhering to the principles of ALARA. COMPARISON STUDY: 09/30/2018 FINDINGS: Minimal bibasilar atelectasis. Liver spleen and pancreas remain unremarkable. Several small cysts of the kidneys are stable.. Medial catheter/drainage catheter is unchanged. Mild presacral soft tissue prominence is stable. The bladder is midline. Nonobstructive bowel pattern. Tra ce amount of free fluid diminished from the prior exam. Bowel pattern is considered nonobstructive. There is a left anterior ostomy. There is slight fullness the left ureter as compared to the right. Etiology is unclear. IMPRESSION: 1. Improved exam with a drainage catheter in good position. 2. Minimal presacral soft tissue fullness with no evidence for a significant residual collection or a bscess. 3. Slight fullness proximal to mid left ureter of uncertain etiology. 4. A tiny poorly visualized calcification at the left ureterovesical junction is not entirely exclude d. 5. Trace amount of free fluid within the pelvis improved from the prior exam The above report was generated using voice recognition software. It may contain grammatical, syntax or spelling errors. Electronically signed by: Ramiro Pack M.D. 12/17/2018 10:57 PM
--- NOTE | 2018-12-17 23:37 | Emergency Department Note ---
Entered by Jayden Stevens acting as a scribe for Anil Villa DO History of Present Illness General Chief complaint: Rectal Bleed Stated complaint: RECTAL BLEED Source: patient History of Present Illness Provider complaint: Rectal bleed Onset (ago): hour(s) (Today) Location: buttocks Radiation: non-radiation Pain Consistency: + constant Maximum Pain Intensity: 3 Quality: + other (Bleeding) Relieved By: + none Exacerbated By: + none Associated symptoms: + other (Positive abdominal pain); no chest pain, no fever/chills, no nausea/vomiting and no shortness of breath The patient is a 73 year old female who presents to the Emergency Room with complaints of constant GI bleeding that she first noticed this morning. The patient states that she had a colostomy bad placed 5 weeks ago after having surgery on September 17 in [place] due to her history of colon cancer. The patient notes that shortly after noticing the rectal bleeding, she noticed blood in her ostomy bag as well. The patient also mentioned that she has some right lower quadrant abdominal pain, though she denies any chest pain, shortness of breath, nausea or vomiting. The patient only takes baby Aspirin and no other blood thinning medication. Home Medications Home Medications Medication Instructions Recorded Confirmed Type aspirin 81 mg PO DAILY 09/30/18 12/17/18 History atorvastatin [Lipitor] 40 mg PO DAILY 09/30/18 12/17/18 History dicyclomine 20 mg PO QID PRN 09/30/18 12/17/18 History metoprolol succinate [Toprol XL] 50 mg PO DAILY 09/30/18 12/17/18 History nitroglycerin [Nitrostat] 0.4 mg SUBLINGUAL DIRECTED PRN 09/30/18 12/17/18 History Allergies Allergy/AdvReac Type Severity Reaction Status Date / Time egg Allergy Gastrointestinal Unverified 12/17/18 23:18 Upset Past Med/Surg History Medical History Colon cancer Colonic mass NSTEMI (non-ST elevated myocardial infarction) Family History Other Family history non-contributory Social History Feels Safe at Home: Yes Smoking Status: Never smoker Review of Systems See HPI for pertinent positives & negatives. and A total of 10 systems reviewed and were otherwise negative Physical Exam Vital Signs Vital Signs - 24 hr 12/17/18 21:30 12/17/18 22:50 12/17/18 23:35 Temperature 37.3 C Temperature Source Oral Sepsis Recent Fever Within 48 Hours No Sepsis New/Unexplained Change in Mental Status No Sepsis Action Taken by Nursing No Action Required Pulse Rate 104 H Pulse Rate [Right Finger] 105 H 100 H Pulse Rhythm [Right Finger] Regular Regular Respiratory Rate 16 16 16 Respiratory Effort / Characteristics Non-Labored Spontaneous Non-Labored Spontaneous Non-Labored Spontaneous Respiratory Depth Normal Normal Normal Respiratory Pattern Regular Blood Pressure 208/107 H Blood Pressure [Right Arm] 200/111 H 199/117 H Blood Pressure Mean 140 Blood Pressure Mean [Right Arm] 140 144 Pulse Oximetry 96 96 98 Oxygen Delivery Method Room Air Room Air Room Air 12/17/18 23:41 12/18/18 00:03 12/18/18 00:19 Temperature Temperature Source Sepsis Recent Fever Within 48 Hours Sepsis New/Unexplained Change in Mental Status Sepsis Action Taken by Nursing Pulse Rate Pulse Rate [Right Finger] 103 H Pulse Rhythm [Right Finger] Regular Respiratory Rate 16 Respiratory Effort / Characteristics Non-Labored Spontaneous Respiratory Depth Normal Respiratory Pattern Regular Blood Pressure Blood Pressure [Right Arm] 177/100 H 161/95 H 194/110 H Blood Pressure Mean Blood Pressure Mean [Right Arm] 125 117 138 Pulse Oximetry 97 Oxygen Delivery Method Room Air 12/18/18 00:58 Temperature Temperature Source Sepsis Recent Fever Within 48 Hours Sepsis New/Unexplained Change in Mental Status Sepsis Action Taken by Nursing Pulse Rate Pulse Rate [Right Finger] 103 H Pulse Rhythm [Right Finger] Respiratory Rate 14 Respiratory Effort / Characteristics Respiratory Depth Normal Respiratory Pattern Blood Pressure Blood Pressure [Right Arm] 173/106 H Blood Pressure Mean Blood Pressure Mean [Right Arm] 128 Pulse Oximetry 97 Oxygen Delivery Method Room Air GENERAL: Patient is awake alert in no acute distress patient is resting comfortably and showing no signs of anxiety EYES: The conjunctivae are clear. The pupils are round and reactive. EARS, NOSE, MOUTH AND THROAT: The nose is without any evidence of any deformity. Mucous membranes are moist tongue is midline NECK: The neck is nontender and supple. RESPIRATORY: Normal respiratory effort is noted there is no evidence of wheezing rhonchi or rales CARDIOVASCULAR: Regular rate and rhythm noted there no murmurs rubs or gallops normal S1 normal S2 GASTROINTESTINAL: The abdomen is mildly distended but soft. There is an ostomy site noted in the left side. There is fresh blood noted in the ostomy bag. There is a drain noted in the right side of the abdomen. Abdomen was diffusely tender but no guarding or rigidity noted. MUSCULOSKELETAL/EXTREMITIES: There is no evidence of gross deformity full range of motion is noted in the hips and shoulders SKIN: There is no obvious evidence of any rash. There are no petechiae, pallor or cyanosis noted. NEUROLOGIC: Patient is awake alert and oriented x3. Course 2136: The patient was evaluated in room C09, and a complete history and physical examination were performed. 2324: I reevaluated the patient and she is feeling well, in no pain. Dr. Loki Shah was paged. 2329: I spoke to Dr. Loki Shah about the patients case. He recommends keeping the patient in the hospital for further evaluation. 2346: I spoke to Dr. Krista Ochoa about the patient's case and he will be accepting her for further evaluation. Consultations Consultation #1: I spoke to Dr. Loki Shah about the patients case. He recommends keeping the patient in the hospital for further evaluation. Time: 23:29 Consultation #2: I spoke to Dr. Krista Ochoa about the patient's case and he will be accepting her for further evaluation. Time: 23:46 Administered Medications Ioversol (Optiray 320 100ml) 94 ml IV ONCE PRN PRN Reason: Interaction Checking Stop: 12/21/18 22:44 Last Admin: 12/17/18 22:46 Dose: 94 ml Documented by: [id number] Metoprolol Succinate (Toprol Xl) 50 mg PO DAILY [facility] Stop: 01/17/19 00:09 Last Admin: 12/18/18 00:21 Dose: 50 mg Documented by: [id number] Admin: 12/18/18 00:18 Dose: 50 mg Documented by: [id number] Discontinued Medications Sodium Chloride (Nss 1000ml) 1,000 mls @ 999 mls/hr IV .[id number] KELLY Stop: 12/17/18 22:45 Last Infusion: 12/17/18 23:20 Dose: 0 mls/hr Documented by: [id number] Admin: 12/17/18 22:16 Dose: 999 mls/hr Documented by: [id number] Medical Decision Making Differential Diagnosis Differential: Diverticulitis, AVM, Coagulopathy, Colitis, Malignancy, Upper GI bleed, Fissure, Hemorrhoids, amongst other pathologies entertained. Medical Records Attestation: I reviewed the patient's medical records. Home Medications Current Medication List: was personally reviewed by me Laboratory Data Attestation: I reviewed the patient's lab results. Result diagrams: 12/17/18 21:46 12/17/18 21:46 Lab Results 12/17/18 12/17/18 12/17/18 Range/Units 21:21 21:46 21:46 WBC 10.33 (4.8-10.8) K/uL RBC 4.28 (4.2-5.4) M/uL Hgb 13.3 (12.0-16.0) g/dL POC Hgb (12.0-16.0) g/dl Hct 38.9 (37-47) % POC Hct (37-47) % MCV 90.9 (80-100) fL MCH 31.1 (25-34) pg MCHC 34.2 (32-36) g/dL RDW Std Deviation 41.7 (36.4-46.3) fL RDW Coeff of Amanda 12.6 (11.5-14.5) % Plt Count 273 (130-400) K/uL MPV 11.0 H (7.4-10.4) fL Immature Gran % (Auto) 0.2 % Neut % (Auto) 51.9 % Lymph % (Auto) 33.5 % [place] % (Auto) 12.4 % Eos % (Auto) 1.8 % Baso % (Auto) 0.2 % Immature Gran # (Auto) 0.02 (0.00-0.02) K/uL Neut # (Auto) 5.36 (1.4-6.5) K/uL Lymph # (Auto) 3.46 H (1.2-3.4) K/uL [place] # (Auto) 1.28 H (0.11-0.59) K/uL Eos # (Auto) 0.19 (0-0.5) K/uL Baso # (Auto) 0.02 (0-0.2) K/uL PT 10.5 (9.0-12.0) Seconds INR 1.0 (0.9-1.1) APTT 26.8 (21.0-31.0) Seconds PTT Ratio 1.0 POC Sodium (135-144) mEq/L Sodium (136-145) mmol/L POC Potassium (3.3-5.0) mEq/L Potassium (3.5-5.1) mmol/L POC Chloride (101-112) mEq/L Chloride (98-107) mmol/L Carbon Dioxide (21-32) mmol/L POC Total CO2 (24-31) mEq/l Anion Gap (3-11) POC Anion Gap (16-25) mmol/L POC BUN (7-18) mg/dl BUN (7-18) mg/dl Creatinine (0.6-1.2) mg/dl POC Creatinine (0.6-1.3) mg/dl Est Cr Clr Drug Dosing ml/min Est GFR ( Amer) Est GFR (Non-Af Amer) BUN/Creatinine Ratio (10-20) Glucose (70-99) mg/dl POC Glucose (other) (70-99) mg/dl Calcium (8.5-10.1) mg/dl POC Ioniz Calcium Mary (1.12-1.32) mmol/l Total Bilirubin (0.2-1) mg/dl AST (15-37) U/L ALT (12-78) U/L Alkaline Phosphatase (45-117) U/L Total Protein (6.4-8.2) gm/dl Albumin (3.4-5.0) gm/dl Globulin (2.5-4.0) gm/dl Albumin/Globulin Ratio (0.9-2) Lipase (73-393) U/L Urine Color Yellow Urine Appearance Clear (Clear) Urine pH 7.5 (4.5-7.5) Ur Specific [place] 1.017 (1.000-1.030) Urine Protein Negative (Negative) Urine Glucose (UA) Negative (Negative) Urine Ketones Negative (Negative) Urine Blood 2+ H (Negative) Urine Nitrite Negative (Negative) Urine Bilirubin Negative (Negative) Urine Urobilinogen Negative (Negative) Ur Leukocyte Esterase Trace H (Negative) Urine WBC (Auto) 1-5 (0-5) /hpf Urine RBC (Auto) 10-30 H (0-4) /hpf U Hyaline Cast (Auto) 0 (0-5) /lpf U Epithel Cells (Auto) 0-5 (0-5) /lpf Urine Bacteria (Auto) Negative (Negative) 12/17/18 12/17/18 Range/Units 21:46 21:57 WBC (4.8-10.8) K/uL RBC (4.2-5.4) M/uL Hgb (12.0-16.0) g/dL POC Hgb 12.9 (12.0-16.0) g/dl Hct (37-47) % POC Hct 38 (37-47) % MCV (80-100) fL MCH (25-34) pg MCHC (32-36) g/dL RDW Std Deviation (36.4-46.3) fL RDW Coeff of Amanda (11.5-14.5) % Plt Count (130-400) K/uL MPV (7.4-10.4) fL Immature Gran % (Auto) % Neut % (Auto) % Lymph % (Auto) % [place] % (Auto) % Eos % (Auto) % Baso % (Auto) % Immature Gran # (Auto) (0.00-0.02) K/uL Neut # (Auto) (1.4-6.5) K/uL Lymph # (Auto) (1.2-3.4) K/uL [place] # (Auto) (0.11-0.59) K/uL Eos # (Auto) (0-0.5) K/uL Baso # (Auto) (0-0.2) K/uL PT (9.0-12.0) Seconds INR (0.9-1.1) APTT (21.0-31.0) Seconds PTT Ratio POC Sodium 141 (135-144) mEq/L Sodium 141 (136-145) mmol/L POC Potassium 4.0 (3.3-5.0) mEq/L Potassium 4.1 (3.5-5.1) mmol/L POC Chloride 104 (101-112) mEq/L Chloride 108 H (98-107) mmol/L Carbon Dioxide 26 (21-32) mmol/L POC Total CO2 23 L (24-31) mEq/l Anion Gap 7.0 (3-11) POC Anion Gap 18.0 (16-25) mmol/L POC BUN 16 (7-18) mg/dl BUN 17 (7-18) mg/dl Creatinine 0.75 (0.6-1.2) mg/dl POC Creatinine 0.7 (0.6-1.3) mg/dl Est Cr Clr Drug Dosing 48.0 ml/min Est GFR ( Amer) 91.7 Est GFR (Non-Af Amer) 79.1 BUN/Creatinine Ratio 22.4 H (10-20) Glucose 94 (70-99) mg/dl POC Glucose (other) 97 (70-99) mg/dl Calcium 9.5 (8.5-10.1) mg/dl POC Ioniz Calcium Mary 1.15 (1.12-1.32) mmol/l Total Bilirubin 0.3 (0.2-1) mg/dl AST 22 (15-37) U/L ALT 34 (12-78) U/L Alkaline Phosphatase 98 (45-117) U/L Total Protein 7.4 (6.4-8.2) gm/dl Albumin 3.9 (3.4-5.0) gm/dl Globulin 3.5 (2.5-4.0) gm/dl Albumin/Globulin Ratio 1.1 (0.9-2) Lipase 185 (73-393) U/L Urine Color Urine Appearance (Clear) Urine pH (4.5-7.5) Ur Specific [place] (1.000-1.030) Urine Protein (Negative) Urine Glucose (UA) (Negative) Urine Ketones (Negative) Urine Blood (Negative) Urine Nitrite (Negative) Urine Bilirubin (Negative) Urine Urobilinogen (Negative) Ur Leukocyte Esterase (Negative) Urine WBC (Auto) (0-5) /hpf Urine RBC (Auto) (0-4) /hpf U Hyaline Cast (Auto) (0-5) /lpf U Epithel Cells (Auto) (0-5) /lpf Urine Bacteria (Auto) (Negative) Imaging Data Radiologist's Impression: Radiology results as stated below per my review and the radiologist's interpretation: CT abd pelvis IV con only CT DOSE: 235.72 mGy.cm HISTORY: Pain GIB TECHNIQUE: Multiaxial CT images of the abdomen and pelvis were performed following the use of intravenous contrast. A dose lowering technique was utilized adhering to the principles of ALARA. COMPARISON STUDY: 09/30/2018 FINDINGS: Minimal bibasilar atelectasis. Liver spleen and pancreas remain unremarkable. Several small cysts of the kidneys are stable.. Medial catheter/drainage catheter is unchanged. Mild presacral soft tissue prominence is stable. The bladder is midline. Nonobstructive bowel pattern. Trace amount of free fluid diminished from the prior exam. Bowel pattern is considered nonobstructive. There is a left anterior ostomy. There is slight fullness the left ureter as compared to the right. Etiology is unclear. IMPRESSION: 1. Improved exam with a drainage catheter in good position. 2. Minimal presacral soft tissue fullness with no evidence for a significant residual collection or abscess. 3. Slight fullness proximal to mid left ureter of uncertain etiology. 4. A tiny poorly visualized calcification at the left ureterovesical junction is not entirely excluded. 5. Trace amount of free fluid within the pelvis improved from the prior exam The above report was generated using voice recognition software. It may contain grammatical, syntax or spelling errors. Electronically signed by: Ramiro Pack M.D. 12/17/2018 10:57 PM Blood Pressure Blood Pressure Findings: Elevated blood pressure Blood Pressure Disposition: further management by hospitalist MDM Narrative The patient is a 73-year-old female who presented to the emergency department for GI bleeding. The patient noticed rectal bleeding initially which was mild. She then noticed blood in her ostomy bag. Visible exam did reveal that this could be related to a small area of bleeding around the ostomy site at approximately 5:00. The patient had significant abdominal tenderness. For this reason further laboratory and radiographic studies were obtained. The patient's hemoglobin was stable. She was not hypotensive. I discussed the patient's laboratory and radiographic studies with her. I also discussed her case with the on-call general surgeon. Given the patient's recent surgical intervention for colorectal cancer he did feel that it may be prudent to observe the patient to ensure the bleeding does not recur or worsen. I discussed her case with the on-call [facility] hospitalist group. They have agreed to evaluate the patient in the emergency department for further management and disposition. Impression & Plan Lower GI bleed, Abdominal pain Discharge Plan Visit Data Chief Complaint: Rectal Bleed Stated Complaint: RECTAL BLEED ED Provider: Anil Villa Discharge Problem: Lower GI bleed, Abdominal pain Patient Disposition: Being Evaluated by Hospitalist Forms Stand Alone Forms: My [facility] Prescriptions Prescriptions: No Action atorvastatin [Lipitor] 40 mg Tablet 40 mg PO DAILY RF: 0 metoprolol succinate [Toprol XL] 50 mg Tablet Extended Release 24 Hr 50 mg PO DAILY RF: 0 aspirin 81 mg Tablet,Delayed Release (Dr/Ec) 81 mg PO DAILY RF: 0 dicyclomine 20 mg Tablet 20 mg PO QID PRN (Reason: abdominal pain, gas, diarrhea) RF: 0 nitroglycerin [Nitrostat] 0.4 mg Tablet, Sublingual 0.4 mg sublingual DIRECTED PRN (Reason: Chest Pain) RF: 0 Referrals Referrals: Julieta Villagomez MD [Primary Care Provider] - Discharge Problem: Abdominal pain Qualifiers: Abdominal location: unspecified location Qualified Code(s): R10.9 - Unspecified abdominal pain The scribe's documentation has been prepared under my direction and personally reviewed by me in its entirety. I confirm that the note above accurately reflects all work, treatment, procedures, and medical decision making performed by me.
[2018-12-18] MEDS: METOPROLOL SUCC 50MG EXT REL TAB PO SCH ×3 (00:18→08:16)
[2018-12-18 01:29] LABS: Magnesium 2.1 mg/dl (1.8-2.4)
--- NOTE | 2018-12-18 01:58 | History & Physical Report ---
Date of Service December 18, 2018 Assessment & Plan (1) Lower GI bleed: hx laparoscopic diverting loop colostomy creation (11/2018) for post robotic ultra low anterior resection for rectal cancer (08/2018) pelvic anastomotic leak Rule C. difficile Currently hemodynamically stable. CAD status post stent hypertension, elevated secondary to discomfort hyperlipidemia on statin Rx Medical telemetry given uncontrolled blood pressure Facilitate home beta-taylor, may need to titrate dose Stool C. difficile Serial H&H, transfuse PRBC if hemoglobin less than 8 (hx CAD) and/or for symptomatic anemia Appropriate to hold home aspirin for now until H&H trend stable. Surgery consult RE L GIB, hx bowel surgery (ER provider already in touch with Dr. Manjarrez.) DVT prophylaxis SCDs RE L GIB Full code History of Present Illness Chief Complaint: Ostomy bag/rectal bleed Primary Care Provider: Julieta Guillaume MD History obtained from patient and records. Medical history significant for CAD status post stent, hypertension, hyperlipidemia, hx rectal cancer status post surgery. Recent confinement July 2016 for non-ST elevation MA. LAD stent placed. Patient confined at [facility] November 14-2018 for laparoscopic diverting loop colostomy creation, flexible sigmoidoscopy for a contained postop low pelvic anastomotic leak following robotic ultra low anterior resection for rectal cancer (08/2018). Patient last seen by [facility] colorectal surgeon on follow-up 2 weeks ago. Colostomy functioning well without problems with pouching as per records. Recommendation was to continue drain despite low output. CAT scan recommended in about 3 weeks to evaluate the pelvic cavity. Follow-up scheduled 4 weeks after as per outpatient note. Yesterday, patient noted bloody mucoid drainage from her rectum not soaking her underwear as per patient. Some blood also noted about in her AMI drain bulb. Surgeon's office advised patient that rectal discharge was normal. Patient was to see surgeon next week for possible drain removal. Patient later on noted achy right lower quadrant pain with bloody ostomy bag drainage. No fever, no chills, no emesis. Patient brought to the ER by . Medical History as above Surgical History : Ex lap/bowel surgery, breast surgery Family History : Heart disease, stroke, leukemia, cervical cancer Personal/Social history : Non-smoker, occasional EtOH intake, retired realtor Allergies Allergy/AdvReac Type Severity Reaction Status Date / Time egg Allergy Gastrointestinal Unverified 12/17/18 23:18 Upset Home Medications Home Medications Medication Instructions Recorded Confirmed Type aspirin 81 mg PO DAILY 09/30/18 12/17/18 History atorvastatin [Lipitor] 40 mg PO DAILY 09/30/18 12/17/18 History dicyclomine 20 mg PO QID PRN 09/30/18 12/17/18 History metoprolol succinate [Toprol XL] 50 mg PO DAILY 09/30/18 12/17/18 History nitroglycerin [Nitrostat] 0.4 mg SUBLINGUAL DIRECTED PRN 09/30/18 12/17/18 H istory Past Med/Surg History Medical History Colon cancer Colonic mass NSTEMI (non-ST elevated myocardial infarction) Family History Other Family history non-contributory Social History Preferred Language: Hong Konger Communication Ability: Effective [employer] Field Supervisor Required: No Beliefs That Will Affect Care: None Current Living Situation: Spouse Other Information That Helps Us Care for You: No Feels Safe at Home: Yes Safety Concerns: Feels Safe At This Time Smoking Status: Never smoker Hx Alcohol Use: Yes Alcohol type: wine Hx Substance Use: No Review of Systems Review of Systems: As per HPI, all 10 systems reviewed, all other ROS negative Physical Exam Physical Exam: GENERAL: Comfortable, pleasant, no respiratory distress SKIN: Normal color, warm HEENT: Bespectacled, pink palpebral conjunctivae, no ptosis, dry buccal mucosa NECK : Supple, no tenderness CHEST : CTA, no tenderness HEART : RRR, no obvious murmurs ABDOMEN: Some distention, right-sided abdominal tenderness, ostomy bag noted on the left side containing dark bloody output EXTREMITIES : No LE swelling/tenderness, no other conspicuous deformities noted NEUROLOGIC : Coherent, no facial asymmetry, no other gross focality Results & Data Vital Signs (Past 12 Hours) Vital Signs Temp Pulse Pulse Resp BP BP Pulse Ox 12/18/18 01:44 100 H 18 178/101 H 98 12/18/18 00:58 103 H 14 173/106 H 97 12/18/18 00:19 103 H 16 194/110 H 97 12/18/18 00:03 161/95 H 12/17/18 23:41 177/100 H 12/17/18 23:35 100 H 16 199/117 H 98 12/17/18 22:50 105 H 16 200/111 H 96 12/17/18 21:30 37.3 C 104 H 16 208/107 H 96 Laboratory Results Laboratory Results WBC 10.33 K/uL (4.8-10.8) 12/17/18 21:46 RBC 4.28 M/uL (4.2-5.4) 12/17/18 21:46 Hgb 13.3 g/dL (12.0-16.0) 12/17/18 21:46 POC Hgb 12.9 g/dl (12.0-16.0) 12/17/18 21:57 Hct 38.9 % (37-47) 12/17/18 21:46 POC Hct 38 % (37-47) 12/17/18 21:57 MCV 90.9 fL (80-100) 12/17/18 21:46 MCH 31.1 pg (25-34) 12/17/18 21:46 MCHC 34.2 g/dL (32-36) 12/17/18 21:46 RDW Std Deviation 41.7 fL (36.4-46.3) 12/17/18 21:46 RDW Coeff of Amanda 12.6 % (11.5-14.5) 12/17/18 21:46 Plt Count 273 K/uL (130-400) 12/17/18 21:46 MPV 11.0 fL (7.4-10.4) H 12/17/18 21:46 Immature Gran % (Auto) 0.2 % 12/17/18 21:46 Neut % (Auto) 51.9 % 12/17/18 21:46 Lymph % (Auto) 33.5 % 12/17/18 21:46 [place] % (Auto) 12.4 % 12/17/18 21:46 Eos % (Auto) 1.8 % 12/17/18 21:46 Baso % (Auto) 0.2 % 12/17/18 21:46 Immature Gran # (Auto) 0.02 K/uL (0.00-0.02) 12/17/18 21:46 Neut # (Auto) 5.36 K/uL (1.4-6.5) 12/17/18 21:46 Lymph # (Auto) 3.46 K/uL (1.2-3.4) H 12/17/18 21:46 [place] # (Auto) 1.28 K/uL (0.11-0.59) H 12/17/18 21:46 Eos # (Auto) 0.19 K/uL (0-0.5) 12/17/18 21:46 Baso # (Auto) 0.02 K/uL (0-0.2) 12/17/18 21:46 PT 10.5 Seconds (9.0-12.0) 12/17/18 21:46 INR 1.0 (0.9-1.1) 12/17/18 21:46 APTT 26.8 Seconds (21.0-31.0) 12/17/18 21:46 PTT Ratio 1.0 12/17/18 21:46 POC Sodium 141 mEq/L (135-144) 12/17/18 21:57 Sodium 141 mmol/L (136-145) 12/17/18 21:46 POC Potassium 4.0 mEq/L (3.3-5.0) 12/17/18 21:57 Potassium 4.1 mmol/L (3.5-5.1) 12/17/18 21:46 POC Chloride 104 mEq/L (101-112) 12/17/18 21:57 Chloride 108 mmol/L (98-107) H 12/17/18 21:46 Carbon Dioxide 26 mmol/L (21-32) 12/17/18 21:46 POC Total CO2 23 mEq/l (24-31) L 12/17/18 21:57 Anion Gap 7.0 (3-11) 12/17/18 21:46 POC Anion Gap 18.0 mmol/L (16-25) 12/17/18 21:57 POC BUN 16 mg/dl (7-18) 12/17/18 21:57 BUN 17 mg/dl (7-18) 12/17/18 21:46 Creatinine 0.75 mg/dl (0.6-1.2) 12/17/18 21:46 POC Creatinine 0.7 mg/dl (0.6-1.3) 12/17/18 21:57 Est Cr Clr Drug Dosing 48.0 ml/min 12/17/18 21:46 Est GFR ( Amer) 91.7 12/17/18 21:46 Est GFR (Non-Af Amer) 79.1 12/17/18 21:46 BUN/Creatinine Ratio 22.4 (10-20) H 12/17/18 21:46 Glucose 94 mg/dl (70-99) 12/17/18 21:46 POC Glucose (other) 97 mg/dl (70-99) 12/17/18 21:57 Calcium 9.5 mg/dl (8.5-10.1) 12/17/18 21:46 POC Ioniz Calcium Mary 1.15 mmol/l (1.12-1.32) 12/17/18 21:57 Magnesium 2.1 mg/dl (1.8-2.4) 12/17/18 21:46 Total Bilirubin 0.3 mg/dl (0.2-1) 12/17/18 21:46 AST 22 U/L (15-37) 12/17/18 21:46 ALT 34 U/L (12-78) 12/17/18 21:46 Alkaline Phosphatase 98 U/L (45-117) 12/17/18 21:46 Total Protein 7.4 gm/dl (6.4-8.2) 12/17/18 21:46 Albumin 3.9 gm/dl (3.4-5.0) 12/17/18 21:46 Globulin 3.5 gm/dl (2.5-4.0) 12/17/18 21:46 Albumin/Globulin Ratio 1.1 (0.9-2) 12/17/18 21:46 Lipase 185 U/L (73-393) 12/17/18 21:46 Urine Color Yellow 12/17/18 21:21 Urine Appearance Clear (Clear) 12/17/18 21:21 Urine pH 7.5 (4.5-7.5) 12/17/18 21:21 Ur Specific [place] 1.017 (1.000-1.030) 12/17/18 21:21 Urine Protein Negative (Negative) 12/17/18 21:21 Urine Glucose (UA) Negative (Negative) 12/17/18 21:21 Urine Ketones Negative (Negative) 12/17/18 21:21 Urine Blood 2+ (Negative) H 12/17/18 21:21 Urine Nitrite Negative (Negative) 12/17/18 21:21 Urine Bilirubin Negative (Negative) 12/17/18 21:21 Urine Urobilinogen Negative (Negative) 12/17/18 21:21 Ur Leukocyte Esterase Trace (Negative) H 12/17/18 21:21 Urine WBC (Auto) 1-5 /hpf (0-5) 12/17/18 21:21 Urine RBC (Auto) 10-30 /hpf (0-4) H 12/17/18 21:21 U Hyaline Cast (Auto) 0 /lpf (0-5) 12/17/18 21:21 U Epithel Cells (Auto) 0-5 /lpf (0-5) 12/17/18 21:21 Urine Bacteria (Auto) Negative (Negative) 12/17/18 21:[address] abdomen pelvis: 1. Improved exam with a drainage catheter in good position. 2. Minimal presacral soft tissue fullness with no evidence for a significant residual collection or abscess. 3. Slight fullness proximal to mid left ureter of uncertain etiology. 4. A tiny poorly visualized calcification at the left ureterovesical junction is not entirely excluded. 5. Trace amount of free fluid within the pelvis improved from the prior exam
[2018-12-18] MEDS ORDERED: METOPROLOL SUCC 50MG EXT REL TAB PO STA (03:14)
[2018-12-18] MEDS ORDERED: PROMETHAZINE HCL 12.5 MG in SODIUM CHLORIDE 0.9% 50 ML IV PRN (03:19)
[2018-12-18] MEDS ORDERED: NITROGLYCERIN SL 0.4 MG/TAB TAB SL PRN (03:19)
[2018-12-18] MEDS ORDERED: MoRPHine SULFATE 2 MG/ML CARP IV PRN (03:19)
[2018-12-18] MEDS ORDERED: TRAMADOL HCL 50 MG TABLET PO PRN (03:19)
[2018-12-18] MEDS ORDERED: ACETAMINOPHEN 325 MG TAB PO PRN (03:19)
[2018-12-18 04:33] LABS: Basophils # (auto) 0.02 K/uL (0-0.2); Basophils % (auto) 0.2 %; Eosinophils # (auto) 0.11 K/uL (0-0.5); Eosinophils % (auto) 1.3 %; Hemoglobin 12.9 g/dL (12.0-16.0); Immature Granulocytes # (auto) 0.01 K/uL (0.00-0.02); Immature Granulocytes % (auto) 0.1 %; Lymphocytes # (auto) 2.51 K/uL (1.2-3.4); Lymphocytes % (auto) 28.7 %; Mean Corpuscular Hgb Conc 33.9 g/dL (32-36); Mean Corpuscular Volume 91.1 fL (80-100); Mean Platelet Volume 10.8 fL (7.4-10.4); Monocytes % (auto) 11.4 %; Neutrophils % (auto) 58.3 %; Platelet Count 266 K/uL (130-400); RDW Coefficient of Variation 12.5 % (11.5-14.5); RDW Standard Deviation 41.9 fL (36.4-46.3); Red Blood Count 4.17 M/uL (4.2-5.4); White Blood Count 8.75 K/uL (4.8-10.8)
--- NOTE | 2018-12-18 06:20 | Surgery Consultation ---
Date of Consultation December 18, 2018 Assessment & Plan (1) Lower GI bleed: Patient with significant past surgical history with a loop colostomy and evidence of GI bleeding. This could be peristomal and with communication to the rectum causing bloody output. Obviously could be proximal including stomach, small bowel or colon. There is potential for Retrograde drainage from the rectum. We will monitor for acute changes and consider GI evaluation. If it appears she continues to hemorrhage we may consider transfer back to [place]. I will evaluate her stoma when the stoma nurses are available and we can change her bag. History of Present Illness Attending Physician: Saima Jett History of Present Illness Patient admitted through the emergency room with bleeding from her stoma into her stoma bag and some rectal bleeding with some bloody fluid in her AMI drain. Her hemoglobin and hematocrit have been stable, she did have some bloody mucousy rectal output this morning. Minimal blood in her stoma bag. Patient has a everting loop colostomy. In August she underwent proctectomy with colorectal anastomosis and subsequent hemorrhage the same day Requiring reoperation. She apparently then developed a pelvic anastomotic leak requiring drainage and loop colostomy in October. This was approximately 5 weeks Prior to this. She feels relatively well and there was some discussion of discharging her home from the ER last evening. After discussion we felt it would be better to serve the patient. Allergies Allergy/AdvReac Type Severity Reaction Status Date / Time egg Allergy Gastrointestinal Unverified 12/17/18 23:18 Upset Home Medications Home Medications Medication Instructions Recorded Confirmed Type aspirin 81 mg PO DAILY 09/30/18 12/17/18 History atorvastatin [Lipitor] 40 mg PO DAILY 09/30/18 12/17/18 History dicyclomine 20 mg PO QID PRN 09/30/18 12/17/18 History metoprolol succinate [Toprol XL] 50 mg PO DAILY 09/30/18 12/17/18 History nitroglycerin [Nitrostat] 0.4 mg SUBLINGUAL DIRECTED PRN 09/30/18 12/17/18 History Patient History Medical History Colon cancer Colonic mass NSTEMI (non-ST elevated myocardial infarction) Family History Other Family history non-contributory Social History Preferred Language: Arabic Communication Ability: Effective Vehicle Service Attendant Required: No Beliefs That Will Affect Care: None Current Living Situation: Spouse Other Information That Helps Us Care for You: No Feels Safe at Home: Yes Safety Concerns: Feels Safe At This Time Smoking Status: Never smoker Hx Alcohol Use: Yes Alcohol type: wine Hx Substance Use: No Review of Systems Review of Systems: All systems reviewed & are unremarkable except as noted in HPI & below Physical Exam Physical Exam: Currently she is awake and alert appears normal and in good spirits. Her sclera are anicteric her skin is normal color without rash. Neck is supple she is in no respiratory distress heart rate is regular at 99. Her abdomen is soft stoma is viable has solid stool at the stoma with no blood. He does have some old blood bag which is not accumulating. Her AMI drain Has evidence of old blood and serous fluid. Results & Data Vital Signs (Past 12 Hours) Vital Signs Temp Pulse Pulse Resp BP BP Pulse Ox 12/18/18 03:30 99 H 12/18/18 03:19 37.5 C 94 H 18 138/79 96 12/18/18 02:43 98 H 16 185/110 H 96 12/18/18 01:44 100 H 18 178/101 H 98 12/18/18 00:58 103 H 14 173/106 H 97 12/18/18 00:19 103 H 16 194/110 H 97 12/18/18 00:03 161/95 H 12/17/18 23:41 177/100 H 12/17/18 23:35 100 H 16 199/117 H 98 12/17/18 22:50 105 H 16 200/111 H 96 12/17/18 21:30 37.3 C 104 H 16 208/107 H 96 Her H&H is stable without signs of significant fall over 6 hours.
--- NOTE | 2018-12-18 08:02 | Hospitalist Progress Note ---
Date of Service December 18, 2018 Assessment & Plan (1) Lower GI bleed: Hx of laparoscopic diverting loop colostomy creation (11/2018) for post robotic ultra low anterior resection for rectal cancer (08/2018) pelvic anastomotic leak Surgery and wound RN evaluated wound-oozing from granuloma at 0900 peristomal area --> partially removed then used silver nitrate --> Still some oozing --> 2- 0 chronic suture placed using 1% plain lidocaine. -H & H stable, Hemodynamically stable -Held Aspirin due to bleeding -C diff ordered- Pending CAD status post stent -Held Aspirin due to bleeding. -Continue with atorvastatin 40 mg q HS, Toprol XL 50 mg daily HTN Stable -Continue with Toprol XL 50 mg daily Hyperlipidemia -Continue with atorvastatin 40 mg q HS DVT prophylaxis SCDs RE L GIB Full code Disposition Medical mx in progress Per discussion with surgery - will observe tonight. If continues to have bleeding, may need to consider GI evaluation Subjective Patient does have some dried blood near stoma in the bag. Denies any fresh red blood. Stool consistencies soft as at baseline. Denies any abdominal pain, nausea, vomiting, fever, chills. No dizziness, lightheadedness. Physical Exam Physical Exam: GENERAL- AAOX3, No acute distress LUNGS- Air entry bilaterally equal. No rales, rhonchi, crackles, wheezes heard. HEART- Regular rate and rhythm. No murmurs ABDOMEN- Colostomy bag- Dried blood near stoma with bag +, Soft, non tender, non distended, Bowel sounds heard. EXTREMITIES- Good peripheral pulses, no edema Results & Data Vital Signs (Past 12 Hours) Vital Signs Temp Pulse Pulse Resp BP BP BP 12/18/18 07:38 37.6 C H 81 19 155/84 H 12/18/18 03:30 99 H 12/18/18 03:19 37.5 C 94 H 18 138/79 12/18/18 02:43 98 H 16 185/110 H 12/18/18 01:44 100 H 18 178/101 H 12/18/18 00:58 103 H 14 173/106 H 12/18/18 00:19 103 H 16 194/110 H 12/18/18 00:03 161/95 H 12/17/18 23:41 177/100 H 12/17/18 23:35 100 H 16 199/117 H 12/17/18 22:50 105 H 16 200/111 H 12/17/18 21:30 37.3 C 104 H 16 208/107 H Pulse Ox 12/18/18 07:38 97 12/18/18 03:30 12/18/18 03:19 96 12/18/18 02:43 96 12/18/18 01:44 98 12/18/18 00:58 97 12/18/18 00:19 97 12/18/18 00:03 12/17/18 23:41 12/17/18 23:35 98 12/17/18 22:50 96 12/17/18 21:30 96
[2018-12-18] MEDS: ATORVASTATIN 40 MG TAB PO SCH (08:16)
[2018-12-18 11:56] LABS: Hematocrit (blood only) 38.1 % (37-47); Hemoglobin 12.8 g/dL (12.0-16.0)
[2018-12-18] MEDS ORDERED: LIDOCAINE HCL 1% 20 ML VIAL INFIL ONE (12:13)
--- NOTE | 2018-12-18 12:34 | Operative Report ---
Post Operative Report Pre & Post Diagnosis granuloma Procedure see description Surgeon Jayden Manjarrez MD, FACS Technician [employer] Chandni Hanna RN Estimated Blood Loss 1 Findings See Below Specimens none Description of Procedure pt has granuloma at 0900 on edge of stoma partially removed then used silver nitrate- still some oozing therefore 2-0 chromic suture placed using 1 % plain lidocaine pt tolerated well I attest to the content of the Intraoperative Record and any orders documented therein. Any exceptions are noted below.
--- NOTE | 2018-12-18 12:38 | Progress Note ---
Date of Service December 18, 2018 Assessment & Plan (1) Lower GI bleed: pt with oozing from granuloma at 0900 peristomal area- used silver nitrate and then sutured satellite project site monitor for ongoing bleeding may require endoscopy if other etiology Subjective see A/P Results & Data Vital Signs (Past 12 Hours) Vital Signs Temp Pulse Pulse Resp BP BP BP 12/18/18 09:00 84 12/18/18 07:38 37.6 C H 81 19 155/84 H 12/18/18 03:30 99 H 12/18/18 03:19 37.5 C 94 H 18 138/79 12/18/18 02:43 98 H 16 185/110 H 12/18/18 01:44 100 H 18 178/101 H 12/18/18 00:58 103 H 14 173/106 H Pulse Ox 12/18/18 09:00 12/18/18 07:38 97 12/18/18 03:30 12/18/18 03:19 96 12/18/18 02:43 96 12/18/18 01:44 98 12/18/18 00:58 97
--- NOTE | 2018-12-19 06:26 | Progress Note ---
Date of Service December 19, 2018 Assessment & Plan (1) Lower GI bleed: No significant active bleeding since yesterday and even prior seemed to be mild- likely peristomal bleeding. feel would be ok for d/c today- pt can f/u w/ surgeons in [place] sooner if problem persists. May have blood/ brown tinged oozing for a week or so Subjective see a/p Results & Data Vital Signs (Past 12 Hours) Vital Signs Temp Pulse Pulse Pulse Resp BP Pulse Ox 12/19/18 04:26 37.1 C 77 18 149/73 H 96 12/19/18 00:00 75 12/18/18 23:00 37.2 C 74 18 146/79 H 94 12/18/18 19:44 36.9 C 92 H 18 152/79 H 94
[2018-12-19] MEDS ORDERED: METOPROLOL SUCC 50MG EXT REL TAB PO SCH (09:00)
[2018-12-19] MEDS: ATORVASTATIN 40 MG TAB PO SCH (09:31)
[2018-12-19 10:23] LABS: Hematocrit (blood only) 38.9 % (37-47); Hemoglobin 12.9 g/dL (12.0-16.0)
[2018-12-19] MEDS: METOPROLOL SUCC 50MG EXT REL TAB PO SCH (10:24)
--- NOTE | 2018-12-19 17:35 | Discharge Summary ---
Date of Service December 19, 2018 Admission HPI Per Admitting Provider History obtained from patient and records. Medical history significant for CAD status post stent, hypertension, hyperlipidemia, hx rectal cancer status post surgery. Recent confinement July 2016 for non-ST elevation MS. LAD stent placed. Patient confined at [facility] November 14-2018 for laparoscopic diverting loop colostomy creation, flexible sigmoidoscopy for a contained postop low pelvic anastomotic leak following robotic ultra low anterior resection for rectal cancer (08/2018). Patient last seen by [facility] colorectal surgeon on follow-up 2 weeks ago. Colostomy functioning well without problems with pouching as per records. Recommendation was to continue drain despite low output. CAT scan recommended in about 3 weeks to evaluate the pelvic cavity. Follow-up scheduled 4 weeks after as per outpatient note. Yesterday, patient noted bloody mucoid drainage from her rectum not soaking her underwear as per patient. Some blood also noted about in her AMI drain bulb. Surgeon's office advised patient that rectal discharge was normal. Patient was to see surgeon next week for possible drain removal. Patient later on noted achy right lower quadrant pain with bloody ostomy bag drainage. No fever, no chills, no emesis. Patient brought to the ER by . 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 Improved exam with a drainage catheter in good position. 2. Minimal presacral soft tissue fullness with no evidence for a significant residual collection or abscess. 3. Slight fullness proximal to mid left ureter of uncertain etiology. 4. A tiny poorly visualized calcification at the left ureterovesical junction is not entirely excluded. 5. Trace amount of free fluid within the pelvis improved from the prior exam Appreciate input from surgery -oozing from granuloma at 0900 peristomal area --> partially removed then used silver nitrate --> Still some oozing --> 2-0 chronic suture placed using 1% plain lidocaine. Hemoglobin remained stable at 12 Hemodynamically stable Aspirin kept on hold Plan of care discussed with Dr. Manjarrez, surgery No evidence of any active bleeding Does not feel patient needs any emergent procedure Able to be discharged home, with close follow-up with colorectal surgery at [facility] CAD status post stent -History of stent placement approximately 2 years back No complaint of angina, no dyspnea on exertion She is asked to continue to hold aspirin for concern for GI bleed -Continue with atorvastatin 40 mg q HS, Toprol XL 50 mg daily HTN -Continue with Toprol XL 50 mg daily Hyperlipidemia -Continue with atorvastatin 40 mg q HS DVT prophylaxis SCDs RE L GIB Full code Disposition Stable to be discharged home today Total Time Total Time Spent Total Time Spent (In Minutes): Approximately 40 minutes Total Time Includes: Examination of the Patient, Discharge Planning, Medication Reconciliation and Communication With Other Providers Discharge Plan Discharge Items Patient Disposition: Home - Self-Care Reason For Visit: HTN URGENCY, LGIB Discharge Diagnosis: LOWER GI BLEED /HIGH BLOOD PRESSURE Discharge Goals: Decrease discomfort and Diagnostic testing Activity: Resume your previous activity Non-emergency contact: Primary Care Provider Call non-emergency contact if: your symptoms worsen and your pain is concerning for you Follow-up/Referrals: Julieta Villagomez MD [Primary Care Provider] - Diet: Low Fiber Addtl Provider Instructions: DO NOT TAKE ASPIRIN DO NOT TAKE MOTRIN /ALEVE/ADVIL/IBUPROPHEN /NAPROXEN -AVOID ALL NSAID'S-CAN CAUSE FOR GI BLEED ( PLEASE ASK THE PHARMACY BEFORE TAKING OVER THE COUNTER PAIN MEDICATIONS - LOT OF THEM ARE COMBINATIONS OF DIFFERENT MEDS ) CAN TAKE TYLENOL NEEDED FOR PAIN PLEASE CALL [facility] TO SCHEDULE APPOINTMENT WITH SURGERY PLEASE COME TO NEAREST ER WITH ANY CONCERN FOR WORSENING OF BLEEDING /DIZZY SPELL /LIGHT HEADEDNESS /ABDOMINAL PAIN HOSPITAL FOLLOW UP WITH DR GONZALEZ ON 12/25/2018 @ 2: [address] EKTA GUEVARA'S SCHEDULE IS FULL Prescriptions: Continued atorvastatin [Lipitor] 40 mg Tablet 40 mg PO DAILY RF: 0 metoprolol succinate [Toprol XL] 50 mg Tablet Extended Release 24 Hr 50 mg PO DAILY RF: 0 dicyclomine 20 mg Tablet 20 mg PO QID PRN (Reason: abdominal pain, gas, diarrhea) RF: 0 nitroglycerin [Nitrostat] 0.4 mg Tablet, Sublingual 0.4 mg sublingual DIRECTED PRN (Reason: Chest Pain) RF: 0 Discontinued aspirin 81 mg Tablet,Delayed Release (Dr/Ec) 81 mg PO DAILY RF: 0 Stand-Alone Forms: [facility] Discharge Orders: Discharge Order (Routine); Ordered 12/19/18 Ordered By: Stacey Ramírez Admission Data Admit Date/Time: 12/18/18 02:12 Attending Provider: Stacey Ramírez Admit Provider: Daryl Velasco Primary Care Provider: Julieta Villagomez Other Providers: Jayden Manjarrez Service: Telemetry Medical Other Interventions: Discharge Summary Assessment (RN) Last Done: 12/19/18 17:29 DC Date/Time DO NOT enter until pt leaves facility: 12/19/18 18:02
== END 2018-12-19 18:02 | disposition home or self-care (01) | DRG 378 ==
LOC: ED 21:27 → SUATTDRO 12-18 02:12 → 2N 12-18 02:12